=== PATIENT | female | born 1970 | race Hispanic/Latino ===

== ENCOUNTER 2024-12-07 23:00 | Inpatient (IN) | payer SELFPAY ==
[~2024-12-07] VITALS: Ht 160 cm; Wt 80.6 kg
--- NOTE | 2024-12-07 23:15 | ERN ---
ED Note History of Present Illness Stated Complaint: ABD Chief Complaint: Abdominal Pain Time Seen by MD: 23:02 Dictation: This is a 53-year-old female who presented to the emergency room complaining of epigastric pain radiating to the backside. This started around 7:00 p.m. and patient thought she may be constipated and took a laxative around 7:30 p.m. without significant improvement. She also reports some nausea and had emesis in the hospital She reported vomitings after she arrived at the hospital. She denied fever chills or rigors does report flank pain radiating to the front. Temperature 97.7 pulse 125 respirations 20 blood pressure 173/88 with a pulse oximetry of 100 % Allergies: Coded Allergies: No Known Allergies (Unverified Allergy, Unknown, 12/07/24) Past Medical History Past Medical History: No Pertinent History Surgical History: Cholecystectomy, Family History: Negative History: Not Applicable RN Note Reviewed/Agreed w/PFSH: Yes Review of System Dictation Constitutional: Negative for fever,chills, and weight loss Eyes: Negative for injury, pain,redness, and discharge ENT: Negative for injury,pain or swelling Cardiovascular: Negative for chest pain, palpitations, and edema Respiratory: Negative for shortness of breath, cough, and wheezing, Abdomen/GI: Positive for epigastric abdominal pain, nausea, vomiting, diarrhea, and constipation Back: Negative for injury and pain : Negative for injury, bleeding and discharge MS/Extremity: Negative for injury and deformity Skin: Negative for rash, and discoloration Neuro: Negative for headache, weakness, numbness, tingling, and seizure Psych: Negative for suicide ideation, homicidal ideation, and hallucinations Initial Vital Sign VS Vital Signs Date Time Temp Pulse Resp B/P (MAP) Pulse Ox O2 Delivery O2 Flow Rate FiO2 12/07/24 23:02 97.7 125 20 173/88 100 Room Air 12/07/24 23:12 0 21 Physical Exam Dictation General: awake, alert, NAD obese female who looks uncomfortable from pain Head/Face: Normocephalic, atraumatic Eyes: PERRL, EOMI, vision at baseline ENT: oral cavity clear, TMs clear, no signs of infection Neck: Trachea midline, supple, no nuchal rigidity Cardiovascular: RRR, normal S1/S2, No MRGs, no JVD Respiratory: CTAB, no respiratory distress, No rales or wheezes Abdomen: Soft, mild tenderness in the epigastric area and diffusely, obese, normal bowel sounds, no guarding or rebound. Skin: Warm, dry, normal turgor, no rash MS/Extremity: Pulses equal, no cyanosis, neurovascular intact, FROM Neuro: COAx4, GCS 15, strength 5/5, CN 2-12 intact, normal cerebellar exam, normal gait, Psych: Normal behavior, mood, and affect normal Extremities-trace edema without any palpable cords, Homans sign is negative Results (Laboratory/Radiology) Laboratory/Radiology Laboratory Tests Test 12/07/24 23:13 12/07/24 23:57 White Blood Count 11.5 K/uL (4.8-10.8) H Red Blood Count 5.92 MIL/uL (4.00-5.50) H Hemoglobin 16.9 g/dL (12.0-16.0) H Hematocrit 48.5 % (36-48) H Mean Corpuscular Volume 81.9 fL (79-99) Mean Corpuscular Hemoglobin 28.5 pg (27.0-33.0) Mean Corpuscular Hemoglobin Concent 34.8 g/dL (32.0-36.0) Red Cell Distribution Width 12.5 % (11.0-15.5) Platelet Count 241 K/uL (130-400) Mean Platelet Volume 10.8 fL (7.5-10.5) H Immature Granulocyte % (Auto) 0.3 % (0-1) Neutrophils (%) (Auto) 72.1 % (40.0-77.0) Lymphocytes (%) (Auto) 21.5 % (21.0-51.0) Monocytes (%) (Auto) 4.8 % (3.0-13.0) Eosinophils (%) (Auto) 1.0 % (0.0-8.0) Basophils (%) (Auto) 0.3 % (0.0-5.0) Neutrophils # (Auto) 8.3 K/uL (1.8-7.7) H Lymphocytes # (Auto) 2.5 K/uL (1.0-4.8) Monocytes # (Auto) 0.6 K/uL (0.1-1.0) Eosinophils # (Auto) 0.12 K/uL (0.00-0.70) Basophils # (Auto) 0.04 K/uL (0.00-0.20) Absolute Immature Granulocyte (auto 0.03 K/uL (0-1) Nucleated Red Blood Cells 0.0 % (0.0-0.19) Sodium Level 135 mmol/L (136-145) L Potassium Level 4.3 mmol/L (3.5-5.1) Chloride Level 96 mmol/L (101-111) L Carbon Dioxide Level 29 mmol/L (21-32) Blood Urea Nitrogen 16 mg/dL (7-18) Creatinine 1.0 mg/dL (0.5-1.0) Glomerular Filtration Rate Calc 67 mL/min (>90) Random Glucose 365 mg/dL (70-105) H Total Calcium 10.1 mg/dL (8.5-10.1) Troponin I High Sensitivity 5 ng/L (4-50) Lipase 57 U/L (16-77) Urine Color LIGHT-YELLOW (YELLOW) Urine Appearance CLEAR (CLEAR) Urine pH 5.5 (5.0-8.0) Urine Specific [place] 1.042 (1.001-1.031) Urine Protein 50 mg/dL (NEGATIVE) H Urine Glucose (UA) >=1000 mg/dL (NEGATIVE) H Urine Ketones 5 mg/dL (NEGATIVE) H Urine Occult Blood +- (TRACE) (NEGATIVE) H Urine Nitrate NEGATIVE (NEGATIVE) Urine Bilirubin NEGATIVE mg/dL (NEGATIVE) Urine Urobilinogen 0.2 mg/dL (0.2-1.0) Urine Leukocyte Esterase NEGATIVE Manasa/uL Urine RBC 11-25 /HPF (0-1) H Urine WBC 11-25 /HPF (0-1) H Urine Squamous Epithelial Cells MOD /HPF (0-2) Urine Bacteria RARE /HPF (None Seen) Labs Reviewed?: Yes EKG Comment: 12 lead EKG done on 12/07/2024 at 11:00 p.m. shows a heart rate of 126, VA interval 141, QRS 84, QT/QTC 301/436 Impression sinus tachycardia with overall somewhat low voltage poor progression of the R-waves nonspecific changes. EKG rhythm strip sinus tachycardia with no acute ST-T elevations or deep ST depressions Interpreted by ER MD Dr. Jamil CT Scan Comment: REASON: severe epigastric pain, nausea ? Biliary colic ORDERING PHYSICIAN: MELANI JAMIL MD PROCEDURE: ABD PEL WO - CT ABDOMEN/PELVIS W/O CONTRAST EXAM: CT Abdomen and Pelvis without IV contrast. CLINICAL HISTORY: Severe pain in the epigastrium. TECHNIQUE: Thin collimated axial CT images of the abdomen and pelvis were obtained, with sagittal and coronal reformatted images also submitted. A CT scan is done according to ALARA (As Low As Reasonably Achievable). CONTRAST: None. COMPARISON: None. FINDINGS: Unremarkable visualized lung parenchyma. There is no focal abnormality appreciated within the liver, pancreas, spleen, or adrenals. Status post cholecystectomy. Fatty liver. Moderate thinning of the cortex in the upper pole of the left kidney. There is mild dilatation of the distal small bowel loops to a maximum diameter of 2.8 cm with dilatation terminating at the ileal cecal junction. Moderate fecal content in the cecum. The appendix is unremarkable. Small ventral supraumbilical hernia containing fat through a defect measuring 1.7 cm. 0.7 cm omental fat-containing umbilical hernia. Uncomplicated colonic diverticula. There is no abnormality within the urinary bladder. Unremarkable reproductive organs. No lymphadenopathy. Mild ascites. No pneumoperitoneum. There is about 5 mm phlebolith around the junction of the right renal vein and IVC. Mild calcific atherosclerotic disease in the abdominal aorta. There is no acute osseous abnormality. IMPRESSIONS: Mild small bowel obstruction with dilatation of the distal small bowel loops terminating at the ileal cecal junction. Moderate fecal content in the cecum. Mild ascites. Uncomplicated colonic diverticula. Fatty liver. Cortical scars in the left kidney. Uncomplicated umbilical and supraumbilical ventral wall hernias. Recommend a barium follow-through study for further evaluation. /[place] DICTATED BY: DINOARH TADEO Jr., MD DATE: 12/08/24335 ELECTRONICALLY SIGNED BY: DINORAH TADEO Jr., MD DATE: 12/08/24335 ED Course ED Course Orders Procedure Category Date Status Time Vital Signs Per CPOE 12/07/24 Transmitted Routine 23:02 Saline Lock Iv CPOE 12/07/24 Transmitted 23:02 Cbc With Differential LAB 12/07/24 Complete 23:02 Lipase LAB 12/07/24 Complete 23:02 Urinalysis Profile LAB 12/07/24 Complete 23:02 Troponin I High LAB 12/07/24 Complete Sensitivity 23:02 Basic Metabolic Panel LAB 12/07/24 Complete 23:02 12 Lead Ekg Tracing- EKG 12/07/24 Logged Technical 23:05 Chest 1vw RAD 12/07/24 Resulted 23:11 Morphine 4mg Syg PHA 12/07/24 Complete (Morphine 4mg Syg) 23:30 Pantoprazole 40mg Tab PHA 12/07/24 Complete (Protonix 40mg Tab 23:30 Lidocaine Hcl 2% PHA 12/07/24 Complete Viscous (Lidocaine Hcl 23:30 Mag/Alum/Simeth 30ml PHA 12/07/24 Complete (Maalox Plus 30ml) 23:30 Dicyclomine Hcl PHA 12/07/24 Complete (Bentyl 10mg/5ml 23:30 Ondansetron 4mg Inj PHA 12/08/24 Complete (Zofran 4mg Inj) 00:00 Ondansetron 4mg Inj PHA 12/07/24 Complete (Zofran 4mg Inj) 23:35 0.9%Nacl 1000ml (Ns PHA 12/08/24 Complete 1000ml) 00:30 Culture Urine PALOMO 12/08/24 In Process 00:31 Ceftriaxone 1g Vial PHA 12/08/24 Complete (Rocephine 1g Inj) 01:00 Morphine 4mg Syg PHA 12/08/24 Complete (Morphine 4mg Syg) 01:00 Ct Abdomen/Pelvis W/O CT 12/08/24 Resulted Contrast 01:00 Current Medications Medications (Trade) Dose Ordered Sig/Leah Route PRN Reason Start Time Stop Time Status Last Admin Dose Admin Al Hydroxide/Mg Hydroxide (MAALox PLUS 30ML) 30 ml ONCE ONCE PO 12/07/24 23:30 12/07/24 23:31 DC 12/07/24 23:19 Ceftriaxone Sodium (ROCEphine 1G INJ) 1 gm ONCE ONCE IVPB 12/08/24 01:00 12/08/24 01:01 DC 12/08/24 01:05 Dicyclomine HCl (Bentyl 10mg/5ml Syrup) 10 mg ONCE ONCE PO 12/07/24 23:30 12/07/24 23:31 DC 12/07/24 23:19 Lidocaine HCl (Lidocaine HCl 2% Viscous) 10 ml ONCE ONCE PO 12/07/24 23:30 12/07/24 23:31 DC 12/07/24 23:19 Morphine Sulfate (morPHINE 4MG SYG) 4 mg ONCE ONCE IM 12/07/24 23:30 12/07/24 23:31 DC 12/07/24 23:33 Morphine Sulfate (morPHINE 4MG SYG) 4 mg ONCE ONCE IVP 12/08/24 01:00 12/08/24 01:04 DC 12/08/24 01:05 Ondansetron HCl (zoFRAN 4MG INJ) 4 mg ONCE ONCE IVP 12/08/24 00:00 12/08/24 00:01 DC 12/07/24 23:37 Ondansetron HCl (zoFRAN 4MG INJ) 4 mg STK-MED ONCE .ROUTE 12/07/24 23:35 12/07/24 23:40 DC Pantoprazole Sodium (PROTonix 40MG TAB) 40 mg ONCE ONCE PO 12/07/24 23:30 12/07/24 23:31 DC 12/07/24 23:19 Sodium Chloride 1,000 ml @ 0 mls/hr ONCE ONCE IV 12/08/24 00:30 12/08/24 00:31 DC 12/08/24 00:34 Vital Signs Date Time Temp Pulse Resp B/P (MAP) Pulse Ox O2 Delivery O2 Flow Rate FiO2 12/08/24 02:13 98.8 95 18 143/88 94 Room Air* 0 12/08/24 00:10 115 20 161/102 94 Room Air* 0 12/07/24 23:12 99.1 124 20 186/100 96 Room Air* 0 12/07/24 23:02 97.7 125 20 173/88 100 Room Air We will perform diagnostic labs, and administer medications according to the patient's complaint. Once the results are available, will review and personally interpreted the labs to rule out any acute life-threatening emergency the trach require immediate intervention and treatment. I will then re-evaluate the patient after treatment and diagnostic exams have return to determine whether the patient requires any further testing, can safely be discharged home or need further admission to hospital for additional treatment and evaluation. Labs reviewed CBC showed a white count of 11.5 hemoglobin 16.9 platelets 241. Lipase is 57 troponins are negative BNP 7 showed a sodium of 135 chloride 96 glucose is 365. I also reviewed urinalysis which is significant for positive leuko esterase and increased number of WBCs consistent with a UTI 2:45 a.m. I updated the patient on all the test results and the indicate for CT scan of the abdomen I updated her on the CT abdomen findings of small-bowel obstruction and other findings constipation and I recommended admission to the hospital for monitoring and diabetic teaching. She is agreeable 3:00 a.m. patient accepted by [facility] provider for hospitalist group for admission and further management Medical Decision Making MDM Differential diagnosis: Gastritis, esophagitis, hiatal hernia, gastroesophageal reflux disease, peptic ulcer disease, new onset diabetes Rationale: Tests considered and ordered secondary to shared decision making include: Previous outside records reviewed: Old ER visits. Risk of complication and/or morbidity or mortality of patient management: None Medications-Per medication reconciliation Need for hospitalization: Patient does not meet criteria for hospitalization. Need for emergency major/minor surgery: No There are no social concerns with this patient. Prescription drug management Prescriptions will include symptomatic care Patient's prior external medical records from other ER visits were reviewed by me as indicated. Prior testing and results from previous visits were reviewed. Prior tests were taken into account with medical decision making and resource utilization, independent historian/historians were used to obtain complete medical history. I independently interpreted the test that were performed, results were reviewed by me and considered findings on radiology if ordered. Medical management and examination interpretation discussions were had by me with other qualified healthcare professionals as indicated for the patient's care. Problem List Problem List: (1) Small bowel obstruction (2) UTI (urinary tract infection) (3) Diabetes mellitus, new onset DX & DISP Disposition: Inpatient Decision to Admit Time: 02:46 Departure Impression: Primary Impression: Small bowel obstruction Additional Impressions: UTI (urinary tract infection), Diabetes mellitus, new onset Condition: Stable Additional Instructions: Patient was informed of all the diagnostic labs and procedures conducted in the emergency room today and demonstrated understanding of the results. I personally reviewed and interpreted all the diagnostic exams performed in the ER today. The patient will be admitted to the hospital for further treatment and evaluation. Disposition-admit to facility Condition-stable/guarded Course-uncertain at this time Pain status-decreased Assessment-exam unchanged Admission Certification- I certify that the patients status is appropriate and is based on my best clinical judgment and the patient's condition as documented in the medical records Referrals: MARNIE ROSS MD (PCP) MELANI JAMIL MD Dec 07, 2024 23:15
[2024-12-07] MEDS: DICYCLOMINE HCL 10 MG/5 ML ML PO ONE (23:19)
[2024-12-07] MEDS: MAG/ALUM/SIMETH 30 ML UDCUP PO ONE (23:19)
[2024-12-07] MEDS: LIDOCAINE HCL 2% VISCOUS 15 ML UDCUP PO ONE (23:19)
[2024-12-07 23:20] LABS: IMMATURE GRANULOCYTE ABSOLUTE 0.03 K/uL (0-1); NUCLEATED RED BLOOD CELLS 0.0 % (0.0-0.19); PLATELET COUNT (AUTO) 241 K/uL (130-400); RED BLOOD CELL COUNT(AUTO) 5.92 MIL/uL (4.00-5.50); RED CELL DISTRIBUTION WIDTH 12.5 % (11.0-15.5); WHITE BLOOD COUNT (AUTO) 11.5 K/uL (4.8-10.8)
[2024-12-07 23:41] LABS: CREATININE 1.0 mg/dL (0.5-1.0); GLOMERULAR FILTR. RATE CALC 67.0 mL/min (>90); GLUCOSE,RANDOM 365.0 mg/dL (70-105); SODIUM SERUM 135.0 mmol/L (136-145); UREA NITROGEN, BLOOD 16.0 mg/dL (7-18)
--- NOTE | 2024-12-07 23:51 | NUR ---
UA CUP PROVIDED AND PT DIRECTED TO RESTROOM
[2024-12-08 00:19] LABS: APPEARANCE,URINE CLEAR (CLEAR); GLUCOSE, URINE (UA) >=1000 mg/dL (NEGATIVE); LEUKOCYTE ESTERASE ,URINE NEGATIVE Leu/uL (NEGATIVE); NITRATE,URINE NEGATIVE (NEGATIVE); OCCULT BLOOD,URINE +- (TRACE) (NEGATIVE)
[2024-12-08 00:22] LABS: ADD UA MICROSCOPIC YES
[2024-12-08 00:25] LABS: SQUAMOUS EPITHELIAL CELL,UR MOD /HPF (0-2)
--- NOTE | 2024-12-08 00:28 | HMCIMG ---
EXAM: CR Chest, 1 view. CLINICAL HISTORY: Epigastric pain. COMPARISON: None. FINDINGS: The lungs show no infiltration or other acute findings. No pleural effusion or pneumothorax. The cardio mediastinal silhouette is within normal limits. No acute osseous abnormality. IMPRESSION: No acute cardiopulmonary pathology is evident. /[place]
[2024-12-08] MEDS: 0.9%NACL 1000ML 1,000 ML IV ONE ×2 (00:34→03:35)
--- NOTE | 2024-12-08 02:37 | HMCIMG ---
EXAM: CT Abdomen and Pelvis without IV contrast. CLINICAL HISTORY: Severe pain in the epigastrium. TECHNIQUE: Thin collimated axial CT images of the abdomen and pelvis were obtained, with sagittal and coronal reformatted images also submitted. A CT scan is done according to ALARA (As Low As Reasonably Achievable). CONTRAST: None. COMPARISON: None. FINDINGS: Unremarkable visualized lung parenchyma. There is no focal abnormality appreciated within the liver, pancreas, spleen, or adrenals. Status post cholecystectomy. Fatty liver. Moderate thinning of the cortex in the upper pole of the left kidney. There is mild dilatation of the distal small bowel loops to a maximum diameter of 2.8 cm with dilatation terminating at the ileal cecal junction. Moderate fecal content in the cecum. The appendix is unremarkable. Small ventral supraumbilical hernia containing fat through a defect measuring 1.7 cm. 0.7 cm omental fat-containing umbilical hernia. Uncomplicated colonic diverticula. There is no abnormality within the urinary bladder. Unremarkable reproductive organs. No lymphadenopathy. Mild ascites. No pneumoperitoneum. There is about 5 mm phlebolith around the junction of the right renal vein and IVC. Mild calcific atherosclerotic disease in the abdominal aorta. There is no acute osseous abnormality. IMPRESSIONS: Mild small bowel obstruction with dilatation of the distal small bowel loops terminating at the ileal cecal junction. Moderate fecal content in the cecum. Mild ascites. Uncomplicated colonic diverticula. Fatty liver. Cortical scars in the left kidney. Uncomplicated umbilical and supraumbilical ventral wall hernias. Recommend a barium follow-through study for further evaluation. /[place]
--- NOTE | 2024-12-08 03:36 | NUR ---
damon seismology technical officer at bedside at this time
--- NOTE | 2024-12-08 03:57 | HP ---
[facility] HISTORY AND PHYSICAL Date of Service: Dec 08, 2024 Time of Service: 03:56 Attending/supervising physicians: Dr. Alaniz and Dr. Kurtis Funk HISTORY OF PRESENT ILLNESS: Ms. Palmer is a 53-year-old female with no known history who presented to [facility] ED for evaluation of abdominal pain onset seven in a.m.. The patient stated the pain is in the epigastric pain radiating to the backside onset around 7:00 p.m. she also reported that she has pain to the flank that radiates to the front. The patient thought she may be constipated and took a laxative around 7:30 p.m. without significant improvement. She reported vomiting after she arrived at the hospital. She denied fever, chills, or rigors. V/S on arrival: 97.7 pulse 125 bpm, respirations 20 bpm, blood pressure 173/88 with a pulse oximetry of 100 %. Labs: WBCs 11.5. Blood glucose was 365 without known history of diabetes mellitus. UA was positive for protein, glucose, ketones, blood, but negative for leuk EST and nitrites. CT abdomen and pelvis with contrast: Mild small bowel obstruction with dilatation of the distal small bowel loops terminating at the ileal cecal junction. Moderate fecal content in the cecum. Mild ascites. Uncomplicated colonic diverticula. Fatty liver. Cortical scars in the left kidney. Uncomplicated umbilical and supraumbilical ventral wall hernias. Chest x-ray: No acute cardiopulmonary pathology is evident. In ED the patient was administered GI cocktail, morphine 2 mg IV, morphine 4 mg IV, Zofran 4 mg IV, NS 2 L bolus, Rocephin 1 g, insulin 5 units. ED provider requested patient be admitted to the hospital with the diagnosis of SBO, UTI, new onset DM. I went to assess the patient at bedside the patient's breathing was even, unlabored, in no distress. She denied any pain. I informed her of labs, diagnostics, and plan of care. I answered her multiple questions. She verbalized understanding and is in agreement with the plan. Plan and assessment are listed below. REVIEW OF SYSTEMS 12-point ROS reviewed with the patient. All pertinent positives mentioned above. Otherwise negative, noncontributory, non-pertinent. PAST MEDICAL HISTORY: As mentioned above PAST SURGICAL HISTORY: Cholecystectomy, PAST SOCIAL HISTORY: Alcohol: Rare. Denied tobacco and illicit drug use FAMILY HISTORY: Noncontributory Coded Allergies: No Known Allergies (Unverified Allergy, Unknown, 12/07/24) PHYSICAL EXAM GENERAL APPEARANCE: The patient is awake, alert, and oriented, in no acute cardiopulmonary distress. NEUROLOGICAL: Cranial nerves II-XII grossly intact. Motor is 5/5 in bilateral upper and lower extremities proximal to distal. No sensory deficits. HEENT: Face is symmetric. Pupils are equal and reactive. Extraocular movements are intact. NECK: Supple. No JVD. No thyromegaly. No submental, submandibular, pre- /postauricular, occipital or supraclavicular lymphadenopathy. CHEST: Normal chest expansion. No Telemetry. LUNGS: Absence of any rales, rhonchi or any wheezing. CARDIOVASCULAR: Regular. S1 and S2 normal. No appreciable rubs, murmurs or gallops. ABDOMEN: Soft, nontender, and nondistended. There is no rebound, voluntary guarding, or rigidity. : Deferred. No Rivera. EXTREMITIES: Non-edematous and not cyanotic. No clubbing. Good capillary refill. SKIN: No skin breakdown. Vital Sign (Last 24 Hours) 12/08/24 03:47 Temp 98.1 Pulse 89 Resp 20 B/P (MAP) 152/92 Pulse Ox 94 O2 Delivery Room Air* O2 Flow Rate 0 FiO2 21 LABS: Laboratory: Test 12/08/24 03:22 12/07/24 23:57 12/07/24 23:13 Range/Units Whole Blood Glucose 343 H 70-110 MG/DL Urine Color LIGHT-YELLOW YELLOW Urine Appearance CLEAR CLEAR Urine pH 5.5 5.0-8.0 Urine Specific [place] 1.042 H 1.001-1.031 Urine Protein 50 H NEGATIVE mg/dL Urine Glucose (UA) >=1000 H NEGATIVE mg/dL Urine Ketones 5 H NEGATIVE mg/dL Urine Occult Blood +- (TRACE) H NEGATIVE Urine Nitrate NEGATIVE NEGATIVE Urine Bilirubin NEGATIVE NEGATIVE mg/dL Urine Urobilinogen 0.2 0.2-1.0 mg/dL Urine Leukocyte Esterase NEGATIVE NEGATIVE Manasa/uL Urine RBC 11-25 H 0-1 /HPF Urine WBC 11-25 H 0-1 /HPF Urine Squamous Epithelial Cells MOD 0-2 /HPF Urine Bacteria RARE None Seen /HPF White Blood Count 11.5 H 4.8-10.8 K/uL Red Blood Count 5.92 H 4.00-5.50 MIL/uL Hemoglobin 16.9 H 12.0-16.0 g/dL Hematocrit 48.5 H 36-48 % Mean Corpuscular Volume 81.9 79-99 fL Mean Corpuscular Hemoglobin 28.5 27.0-33.0 pg Mean Corpuscular Hemoglobin Concent 34.8 32.0-36.0 g/dL Red Cell Distribution Width 12.5 11.0-15.5 % Platelet Count 241 130-400 K/uL Mean Platelet Volume 10.8 H 7.5-10.5 fL Immature Granulocyte % (Auto) 0.3 0-1 % Neutrophils (%) (Auto) 72.1 40.0-77.0 % Lymphocytes (%) (Auto) 21.5 21.0-51.0 % Monocytes (%) (Auto) 4.8 3.0-13.0 % Eosinophils (%) (Auto) 1.0 0.0-8.0 % Basophils (%) (Auto) 0.3 0.0-5.0 % Neutrophils # (Auto) 8.3 H 1.8-7.7 K/uL Lymphocytes # (Auto) 2.5 1.0-4.8 K/uL Monocytes # (Auto) 0.6 0.1-1.0 K/uL Eosinophils # (Auto) 0.12 0.00-0.70 K/uL Basophils # (Auto) 0.04 0.00-0.20 K/uL Absolute Immature Granulocyte (auto 0.03 0-1 K/uL Nucleated Red Blood Cells 0.0 0.0-0.19 % Sodium Level 135 L 136-145 mmol/L Potassium Level 4.3 3.5-5.1 mmol/L Chloride Level 96 L 101-111 mmol/L Carbon Dioxide Level 29 21-32 mmol/L Blood Urea Nitrogen 16 7-18 mg/dL Creatinine 1.0 0.5-1.0 mg/dL Glomerular Filtration Rate Calc 67 >90 mL/min Random Glucose 365 H 70-105 mg/dL Total Calcium 10.1 8.5-10.1 mg/dL Troponin I High Sensitivity 5 4-50 ng/L Lipase 57 16-77 U/L DIAGNOSTICS / RADIOLOGY: [ ] ASSESSMENT: Small bowel obstruction with dilatation of the distal small bowel loops terminating at the ileal cecal junction, per CT 12/08/2024. Mild ascites, per CT on 12/08/2024 Hyperglycemia without known history of diabetes mellitus Uncomplicated colonic diverticula, per CT on 12/08/2024 Fatty liver Cortical scars in the left kidney, per CT on 12/08/2024 Uncomplicated umbilical and supraumbilical ventral wall hernias, per CT on 12/08/2024 Leukocytosis, POA Erythrocytosis, POA Hyperhemoglobinemia, POA Polycythemia, POA Hyponatremia and hyperchloremia Acute kidney injury, GFR 67 (no other GFR to compare) Proteinemia, Glucosuria, ketonuria, per UA on 12/07/2024 PLAN: Admit to medical floor with telemetry monitoring Continue Rocephin IV 2 g Q 24H. LR at 100 mL/hour. Consulted Dr. Sauceda, general surgeon for evaluation of SBO. NPO. Dietitian consult for new onset DM. Consult Nephrology for cortical scars in the left kidney and NOEMY. P.r.n. medications for: Pain management, fever, nausea, vomiting, hypertension, hypertension Glucometer checks a.c. and HS with insulin regular sliding scale as needed per protocol. Blood pressure checks every 4 hours and as needed. Reconcile home medications once available. Monitor renal and liver function. Monitor electrolytes and treat accordingly. A.m. labs. + A1c GI and DVT prophylaxis. Further plan/orders per hospitalization course. 1. Which of the following were discussed? Hospice Care - No Therapeutic options - Yes Advance Directives - Yes Other discussions - 2. Discussed with who? The patient 3. Voluntary nature of this service was explained to the patient? Yes 4. Amount of time spent - __ over 35 minute 5. Reviewed by Physician? (if this service was performed by NPP) Yes ATTESTATION BY PHYSICIAN I have evaluated the patient chart, medical records, and spoke with appropriate staff. I reviewed the documentation, medical decision making, and treatment plan as noted by the KELBY above. I agree with the findings and plan of care. ALEX [employer] TRAINING MANAGER Dec 08, 2024 03:56
[2024-12-08] MEDS ORDERED: LACTULOSE 20 GM/30 ML UDCUP PO PRN (04:00)
[2024-12-08] MEDS: LACTATED RINGERS 1000ML 1,000 ML IV SCH (05:19)
--- NOTE | 2024-12-08 06:46 | EKG ---
[facility] Test Date: 2024-12-07 Test Time: 23:00:55 Pat Name: BUDDY FLOR Department: [facility] Room: 302 Gender: F [employer]: [id number] : 1970 Requested By: MELANI JAMIL Order Number: [id number] Reading MD: Jasmin Ontiveros Measurements Intervals [place] Rate: 126 P: 43 CT: 141 QRS: 51 QRSD: 84 T: -8 QT: 301 QTc: 436 Interpretive Statements Sinus tachycardia Low voltage, precordial leads No previous ECG available for comparison Electronically Signed On 12-09-2024 14:08:20 CDT by Jasmin Ontiveros Please click the below link to view image of tracing.
[2024-12-08 08:58] LABS: INR 1.01 (0.85-1.15)
[2024-12-08 09:06] LABS: ASPARTATE AMINOTRANSFERASE 25.0 U/L (10-37); TOTAL PROTEIN, SERUM 6.7 g/dL (6.0-8.3)
[2024-12-08] MEDS: FAMOTIDINE 20MG VIAL IV SCH (09:58)
--- NOTE | 2024-12-08 10:16 | NUR ---
NO HOME MEDICATIONS PER PT.
[2024-12-08 14:08] LABS: LDL DIRECT 113 mg/dL (0-99)
--- NOTE | 2024-12-08 14:45 | CONS ---
NEPHROLOGY CONSULTATION NOTE Date/Time Patient Seen: Dec 08, 2024 [id number] Reason for Consultation: Renal failure HISTORY OF PRESENT ILLNESS: This is a 54-year-old female with no known history She presented to emergency room with complaints of epigastric pain radiating to back, nausea, and vomiting Imaging studies were noted. She was admitted for further evaluation management of SBO, UTI, and new onset diabetes. She was noted with elevated BUN/creatinine We has been consulted for renal failure Renal function is stable Electrolytes are stable. UA was positive for proteinuria. She was seen in the emergency room, in no acute distress No family at the bedside Prognosis remains guarded REVIEW OF SYSTEMS: GENERAL: Positive for epigastric pain NEUROLOGIC: Negative for any blurry vision, blind spots, double vision, facial asymmetry, dysphagia, dysarthria, hemiparesis, hemisensory deficits, vertigo, ataxia. HEENT: Negative for any head trauma, neck trauma, neck stiffness, photophobia, phonophobia, sinusitis, rhinitis. CARDIAC: Negative for any chest pain, dyspnea on exertion, paroxysmal nocturnal dyspnea, peripheral edema. PULMONARY: Negative for any shortness of breath, wheezing, COPD, or TB exposure. GASTROINTESTINAL: Negative for any abdominal pain, nausea, vomiting, bright red blood per rectum, melena. GENITOURINARY: Negative for any dysuria, hematuria, incontinence. INTEGUMENTARY: Negative for any rashes, cuts, insect bites. RHEUMATOLOGIC: Negative for any joint pains, photosensitive rashes, history of vasculitis or kidney problems. HEMATOLOGIC: Negative for any abnormal bruising, frequent infections or bleeding. PAST MEDICAL HISTORY: No known medical history PAST SURGICAL HISTORY: Cholecystectomy, PAST SOCIAL HISTORY: Denies use of alcohol, tobacco or illicit drugs FAMILY HISTORY: Noncontributory PHYSICAL EXAM: GENERAL: Alert and oriented x 3. No acute distress. Well-nourished. EYES: EOMI. Anicteric. HENT: Moist mucous membranes. No scleral icterus. No cervical lymphadenopathy. LUNGS: Clear to auscultation bilaterally. No accessory muscle use. CARDIOVASCULAR: Regular rate and rhythm. No murmur. No JVD. ABDOMEN: Soft, non-tender and non-distended. No palpable masses. EXTREMITIES: No edema. Non-tender. SKIN: No rashes or lesions. Warm. NEUROLOGIC: No focal neurological deficits. CN II-XII grossly intact, but not individually tested. PSYCHIATRIC: Cooperative. Appropriate mood and affect. MEDICATIONS: [ ] Current Medications Medications (Trade) Dose Ordered Sig/Leah Route PRN Reason Start Time Stop Time Status Last Admin Dose Admin Acetaminophen (TYLenol 325MG TAB) 650 mg Q6H PRN PO FEVER/MILD PAIN LEVEL 1-3 12/08/24 04:00 01/07/25 03:59 Acetaminophen (TYLenol 650MG SUPPOSITORY) 650 mg Q6H PRN RC FEVER / MILD PAIN 1-3 IF NPO 12/08/24 04:00 01/07/25 03:59 Ceftriaxone Sodium (Rocephin 2gm Inj) 2 gm Q24H IVPB 12/09/24 01:00 12/19/24 00:59 Famotidine (Pepcid 20mg Vial) 20 mg BID IV 12/08/24 09:00 01/07/25 08:59 12/08/24 09:58 20 MG Insulin Human Regular (humuLIN R 100 UNIT/ML 3ML) INSULIN SLIDING SCAL... ACHS SQ 12/08/24 07:30 01/07/25 07:29 Labetalol HCl (TRANdate 20MG SYG) 10 mg Q2H PRN IV SBP GREATER THAN 160 12/08/24 04:00 01/07/25 03:59 Lactated Ringer's 1,000 ml @ 100 mls/hr Q10H IV 12/08/24 04:00 01/07/25 03:59 12/08/24 05:19 100 MLS/HR Lactulose (Constulose 20gm/ 30ml Udcup) 20 gm Q6H PRN PO CONSTIPATION 12/08/24 04:00 01/07/25 03:59 Morphine Sulfate (morPHINE 2MG SYG) 2 mg Q4H PRN IVP MODERATE PAIN (7-10) 12/08/24 04:00 12/15/24 03:59 Ondansetron HCl (zoFRAN 4MG INJ) 4 mg Q6H PRN IVP NAUSEA/VOMITING 12/08/24 04:00 01/07/25 03:59 Temazepam (restORIL 15 MG CAP) 15 mg HS PRN PO INSOMNIA/SLEEP 12/08/24 04:00 01/07/25 03:59 Vital Signs (last 8hr) Date Time Temp Pulse Resp B/P (MAP) Pulse Ox O2 Delivery O2 Flow Rate FiO2 12/08/24 07:37 98.1 77 17 129/77 98 Room Air* 0 21 DIAGNOSTICS / RADIOLOGY: [facility] [address] [place] [address] IMAGING REPORT Addendum PATIENT: BUDDY FLOR MR#: [id number] : 1970 SEX: F AGE: 54 LOCATION: [facility] ORDER 1 STATUS: REG ER REPORT#: [id number] SERVICE REASON: severe epigastric pain, nausea ? Biliary colic ORDERING PHYSICIAN: STEPHANI JAMIL MD PROCEDURE: ABD PEL WO - CT ABDOMEN/PELVIS W/O CONTRAST ADDENDUM REPORT ADDENDUM: Results were shared by telephone at 3:49 am on 12-08-24 and acknowledged by tSephani Severino. /[place] EXAM: CT Abdomen and Pelvis without IV contrast. CLINICAL HISTORY: Severe pain in the epigastrium. TECHNIQUE: Thin collimated axial CT images of the abdomen and pelvis were obtained, with sagittal and coronal reformatted images also submitted. A CT scan is done according to ALARA (As Low As Reasonably Achievable). CONTRAST: None. COMPARISON: None. FINDINGS: Unremarkable visualized lung parenchyma. There is no focal abnormality appreciated within the liver, pancreas, spleen, or adrenals. Status post cholecystectomy. Fatty liver. Moderate thinning of the cortex in the upper pole of the left kidney. There is mild dilatation of the distal small bowel loops to a maximum diameter of 2.8 cm with dilatation terminating at the ileal cecal junction. Moderate fecal content in the cecum. The appendix is unremarkable. Small ventral supraumbilical hernia containing fat through a defect measuring 1.7 cm. 0.7 cm omental fat-containing umbilical hernia. Uncomplicated colonic diverticula. There is no abnormality within the urinary bladder. Unremarkable reproductive organs. No lymphadenopathy. Mild ascites. No pneumoperitoneum. There is about 5 mm phlebolith around the junction of the right renal vein and IVC. Mild calcific atherosclerotic disease in the abdominal aorta. There is no acute osseous abnormality. IMPRESSIONS: Mild small bowel obstruction with dilatation of the distal small bowel loops terminating at the ileal cecal junction. Moderate fecal content in the cecum. Mild ascites. Uncomplicated colonic diverticula. Fatty liver. Cortical scars in the left kidney. Uncomplicated umbilical and supraumbilical ventral wall hernias. Recommend a barium follow-through study for further evaluation. /[place] DICTATED BY: DINORAH TADEO Jr., MD DATE: 12/08/24 0356 ELECTRONICALLY SIGNED BY: DATE: EXAM: CT Abdomen and Pelvis without IV contrast. CLINICAL HISTORY: Severe pain in the epigastrium. TECHNIQUE: Thin collimated axial CT images of the abdomen and pelvis were obtained, with sagittal and coronal reformatted images also submitted. A CT scan is done according to ALARA (As Low As Reasonably Achievable). CONTRAST: None. COMPARISON: None. FINDINGS: Unremarkable visualized lung parenchyma. There is no focal abnormality appreciated within the liver, pancreas, spleen, or adrenals. Status post cholecystectomy. Fatty liver. Moderate thinning of the cortex in the upper pole of the left kidney. There is mild dilatation of the distal small bowel loops to a maximum diameter of 2.8 cm with dilatation terminating at the ileal cecal junction. Moderate fecal content in the cecum. The appendix is unremarkable. Small ventral supraumbilical hernia containing fat through a defect measuring 1.7 cm. 0.7 cm omental fat-containing umbilical hernia. Uncomplicated colonic diverticula. There is no abnormality within the urinary bladder. Unremarkable reproductive organs. No lymphadenopathy. Mild ascites. No pneumoperitoneum. There is about 5 mm phlebolith around the junction of the right renal vein and IVC. Mild calcific atherosclerotic disease in the abdominal aorta. There is no acute osseous abnormality. IMPRESSIONS: Mild small bowel obstruction with dilatation of the distal small bowel loops terminating at the ileal cecal junction. Moderate fecal content in the cecum. Mild ascites. Uncomplicated colonic diverticula. Fatty liver. Cortical scars in the left kidney. Uncomplicated umbilical and supraumbilical ventral wall hernias. Recommend a barium follow-through study for further evaluation. /[place] DICTATED BY: DINORAH TADEO Jr., MD DATE: 12/08/24335 ELECTRONICALLY SIGNED BY: DINORAH TADEO Jr., MD DATE: 12/08/24335 PATIENT: BUDDY FLOR MR#: [id number] : 1970 SEX: F AGE: 54 LOCATION: [facility] ORDER 13 STATUS: REG ER REPORT#: [id number] SERVICE 10 REASON: Epigastric pain ORDERING PHYSICIAN: STEPHANI JAMIL MD PROCEDURE: CXR1VW - CHEST 1VW EXAM: CR Chest, 1 view. CLINICAL HISTORY: Epigastric pain. COMPARISON: None. FINDINGS: The lungs show no infiltration or other acute findings. No pleural effusion or pneumothorax. The cardio mediastinal silhouette is within normal limits. No acute osseous abnormality. IMPRESSION: No acute cardiopulmonary pathology is evident. /[place] DICTATED BY: DINORAH TADEO Jr., MD DATE: 12/08/24125 ELECTRONICALLY SIGNED BY: DINORAH TADEO Jr., MD DATE: 12/08/24125 LABORATORY: [ ] Hematology Labs: Test 12/07/24 23:13 Range/Units White Blood Count 11.5 H 4.8-10.8 K/uL Red Blood Count 5.92 H 4.00-5.50 MIL/uL Hemoglobin 16.9 H 12.0-16.0 g/dL Hematocrit 48.5 H 36-48 % Mean Corpuscular Volume 81.9 79-99 fL Mean Corpuscular Hemoglobin 28.5 27.0-33.0 pg Mean Corpuscular Hemoglobin Concent 34.8 32.0-36.0 g/dL Red Cell Distribution Width 12.5 11.0-15.5 % Platelet Count 241 130-400 K/uL Mean Platelet Volume 10.8 H 7.5-10.5 fL Immature Granulocyte % (Auto) 0.3 0-1 % Neutrophils (%) (Auto) 72.1 40.0-77.0 % Lymphocytes (%) (Auto) 21.5 21.0-51.0 % Monocytes (%) (Auto) 4.8 3.0-13.0 % Eosinophils (%) (Auto) 1.0 0.0-8.0 % Basophils (%) (Auto) 0.3 0.0-5.0 % Neutrophils # (Auto) 8.3 H 1.8-7.7 K/uL Lymphocytes # (Auto) 2.5 1.0-4.8 K/uL Monocytes # (Auto) 0.6 0.1-1.0 K/uL Eosinophils # (Auto) 0.12 0.00-0.70 K/uL Basophils # (Auto) 0.04 0.00-0.20 K/uL Absolute Immature Granulocyte (auto 0.03 0-1 K/uL Nucleated Red Blood Cells 0.0 0.0-0.19 % Chemistry Labs: Test 12/08/24 12:12 12/08/24 10:04 12/08/24 08:39 12/07/24 23:13 Range/Units Lactic Acid Level 1.9 0.8-2.5 mmol/L Triglycerides Level 187 30-200 mg/dL Cholesterol Level 197 <200 mg/dL LDL Cholesterol 113 H 0-99 mg/dL HDL Cholesterol 48 35-85 mg/dL Whole Blood Glucose 216 H 70-110 MG/DL Hemoglobin A1c 10.9 H 4.0-6.0 % Estimated Average Glucose (eAG) 266 H 70-126 mg/dL Total Bilirubin 0.5 0.2-1.0 mg/dL Direct Bilirubin 0.1 0.0-0.3 mg/dL Aspartate Amino Transf (AST/SGOT) 25 10-37 U/L Alanine Aminotransferase (ALT/SGPT) 60 12-78 U/L Alkaline Phosphatase 107 50-136 U/L C-Reactive Protein, Quantitative 16.20 H 0.5-3.0 mg/L Total Protein 6.7 6.0-8.3 g/dL Albumin 3.3 L 3.5-5.0 g/dL Procalcitonin < 0.05 L 0.05-0.5 ng/mL Sodium Level 135 L 136-145 mmol/L Potassium Level 4.3 3.5-5.1 mmol/L Chloride Level 96 L 101-111 mmol/L Carbon Dioxide Level 29 21-32 mmol/L Blood Urea Nitrogen 16 7-18 mg/dL Creatinine 1.0 0.5-1.0 mg/dL Glomerular Filtration Rate Calc 67 >90 mL/min Random Glucose 365 H 70-105 mg/dL Total Calcium 10.1 8.5-10.1 mg/dL Troponin I High Sensitivity 5 4-50 ng/L Lipase 57 16-77 U/L Coagulation Labs: Test 12/08/24 08:39 Range/Units Prothrombin Time 10.7 9.6-11.6 SEC Prothromb Time International Ratio 1.01 0.85-1.15 Activated Partial Thromboplast Time 22.6 L 26.3-35.5 SEC ASSESSMENT: Acute kidney injury Proteinuria Hyponatremia Small bowel obstruction with dilatation of the distal small bowel loops terminating at the ileal cecal junction, per CT 12/08/2024. Mild ascites, per CT on 12/08/2024 Hyperglycemia without known history of diabetes mellitus Uncomplicated colonic diverticula, per CT on 12/08/2024 Fatty liver Cortical scars in the left kidney, per CT on 12/08/2024 Uncomplicated umbilical and supraumbilical ventral wall hernias, per CT on 12/08/2024 Leukocytosis, POA Erythrocytosis, POA Hyperhemoglobinemia, POA Polycythemia, POA PLAN: Labs, diagnostic, radiologic exams reviewed and interpreted by myself and supervising physician. We have reviewed external records in detail Obtain urine electrolytes, urine creatinine, urine osmolality and complete renal ultrasound Require close monitoring of renal function and electrolytes Order CBC, CMP, uric acid, TSH and electrolytes in am Continue with antibiotics BiPAP as necessary, for respiratory distress Monitor blood pressure adjust medication doses as needed Avoid hypotensive episodes May use Dilaudid 0.5 mg IV every 6 hours as needed for severe pain Monitor blood sugars Strict intake, output, and daily weight should be monitored Please renally adjust medications Avoid nephrotoxic and nonsteroidal drugs Avoid contrast if possible Will continue to monitor renal function, anemia, electrolytes Treatment plan discussed with patient Questions were answered We have discussed with the other team physicians in detail about the care plan We will continue to monitor the patient closely Thank you for allowing us to participate in the care of this patient ATTESTATION BY PHYSICIAN I have seen and examined the patient. I reviewed the documentation, medical decision making, and treatment plan as noted by the mid-level provider above. I agree with the findings and plan of care. LEONIDAS RINCON MD, [facility] Dec 08, 2024 14:45
--- NOTE | 2024-12-08 14:57 | PN ---
[facility] PROGRESS NOTE Date of Service: Dec 08, 2024 Time of Service: 14:38 SUBJECTIVE: Ms. Flor is a 53-year-old female with no known history who presented to [facility] for evaluation of abdominal pain onset seven in a.m.. The patient stated the pain is in the epigastric pain radiating to the backside onset around 7:00 p.m. she also reported that she has pain to the flank that radiates to the front. The patient thought she may be constipated and took a laxative around 7:30 p.m. without significant improvement. She reported vomiting after she arrived at the hospital. She denied fever, chills, or rigors. V/S on arrival: 97.7 pulse 125 bpm, respirations 20 bpm, blood pressure 173/88 with a pulse oximetry of 100 %. Labs: WBCs 11.5. Blood glucose was 365 without known history of diabetes mellitus. UA was positive for protein, glucose, ketones, blood, but negative for leuk EST and nitrites. CT abdomen and pelvis with contrast: Mild small bowel obstruction with dilatation of the distal small bowel loops terminating at the ileal cecal junction. Moderate fecal content in the cecum. Mild ascites. Uncomplicated colonic diverticula. Fatty liver. Cortical scars in the left kidney. Uncomplicated umbilical and supraumbilical ventral wall hernias. Chest x-ray: No acute cardiopulmonary pathology is evident. In ED the patient was administered GI cocktail, morphine 2 mg IV, morphine 4 mg IV, Zofran 4 mg IV, NS 2 L bolus, Rocephin 1 g, insulin 5 units. ED provider requested patient be admitted to the hospital with the diagnosis of SBO, UTI, new onset DM. 12/08/2024: Patient was seen in ED 18at the bedside. Patient was alert, awake, and oriented. Patient did not seem to be in any apparent distress. We discussed the laboratory findings, imaging results, and our plan with the patient today. Patient was able to localize her pain to lower abdomen today. She endorsed pain on palpation. Patient stated that she felt like she was having colic when her symptoms started yesterday. Patient stated that she has been having this colicky abdominal pain since a long time that she states last a few minutes every time. Her only significant medical history corresponds to a cholecystectomy done in 1994 and 2 deliveries. Surgery evaluation requested, pending. Her vitals look stable today with a blood pressure of 129/77. REVIEW OF SYSTEMS 12-point ROS reviewed with the patient. All pertinent positives mentioned above. Otherwise negative, noncontributory, non-pertinent. PHYSICAL EXAM GENERAL APPEARANCE: The patient is awake, alert, and oriented, in no acute cardiopulmonary distress. NEUROLOGICAL: Cranial nerves II-XII grossly intact. Motor is 5/5 in bilateral upper and lower extremities proximal to distal. No sensory deficits. HEENT: Face is symmetric. Pupils are equal and reactive. Extraocular movements are intact. NECK: Supple. No JVD. No thyromegaly. No submental, submandibular, pre- /postauricular, occipital or supraclavicular lymphadenopathy. CHEST: Normal chest expansion. No Telemetry. LUNGS: Absence of any rales, rhonchi or any wheezing. CARDIOVASCULAR: Regular. S1 and S2 normal. No appreciable rubs, murmurs or gallops. ABDOMEN: Soft, nontender, and nondistended. There is no rebound, voluntary guarding, or rigidity. : Deferred. No Rivera. EXTREMITIES: Non-edematous and not cyanotic. No clubbing. Good capillary refill. SKIN: No skin breakdown. Vital Signs (last 8hr) Date Time Temp Pulse Resp B/P (MAP) Pulse Ox O2 Delivery O2 Flow Rate FiO2 12/08/24 07:37 98.1 77 17 129/77 98 Room Air* 0 21 LABS: Laboratory: Test 12/08/24 12:12 12/08/24 10:04 12/08/24 08:39 12/07/24 23:57 Range/Units Lactic Acid Level 1.9 0.8-2.5 mmol/L Triglycerides Level 187 30-200 mg/dL Cholesterol Level 197 <200 mg/dL LDL Cholesterol 113 H 0-99 mg/dL HDL Cholesterol 48 35-85 mg/dL Whole Blood Glucose 216 H 70-110 MG/DL Prothrombin Time 10.7 9.6-11.6 SEC Prothromb Time International Ratio 1.01 0.85-1.15 Activated Partial Thromboplast Time 22.6 L 26.3-35.5 SEC Hemoglobin A1c 10.9 H 4.0-6.0 % Estimated Average Glucose (eAG) 266 H 70-126 mg/dL Total Bilirubin 0.5 0.2-1.0 mg/dL Direct Bilirubin 0.1 0.0-0.3 mg/dL Aspartate Amino Transf (AST/SGOT) 25 10-37 U/L Alanine Aminotransferase (ALT/SGPT) 60 12-78 U/L Alkaline Phosphatase 107 50-136 U/L C-Reactive Protein, Quantitative 16.20 H 0.5-3.0 mg/L Total Protein 6.7 6.0-8.3 g/dL Albumin 3.3 L 3.5-5.0 g/dL Procalcitonin < 0.05 L 0.05-0.5 ng/mL Urine Color LIGHT-YELLOW YELLOW Urine Appearance CLEAR CLEAR Urine pH 5.5 5.0-8.0 Urine Specific [place] 1.042 H 1.001-1.031 Urine Protein 50 H NEGATIVE mg/dL Urine Glucose (UA) >=1000 H NEGATIVE mg/dL Urine Ketones 5 H NEGATIVE mg/dL Urine Occult Blood +- (TRACE) H NEGATIVE Urine Nitrate NEGATIVE NEGATIVE Urine Bilirubin NEGATIVE NEGATIVE mg/dL Urine Urobilinogen 0.2 0.2-1.0 mg/dL Urine Leukocyte Esterase NEGATIVE NEGATIVE [place]/uL Urine RBC 11-25 H 0-1 /HPF Urine WBC 11-25 H 0-1 /HPF Urine Squamous Epithelial Cells MOD 0-2 /HPF Urine Bacteria RARE None Seen /HPF Test 12/07/24 23:13 Range/Units White Blood Count 11.5 H 4.8-10.8 K/uL Red Blood Count 5.92 H 4.00-5.50 MIL/uL Hemoglobin 16.9 H 12.0-16.0 g/dL Hematocrit 48.5 H 36-48 % Mean Corpuscular Volume 81.9 79-99 fL Mean Corpuscular Hemoglobin 28.5 27.0-33.0 pg Mean Corpuscular Hemoglobin Concent 34.8 32.0-36.0 g/dL Red Cell Distribution Width 12.5 11.0-15.5 % Platelet Count 241 130-400 K/uL Mean Platelet Volume 10.8 H 7.5-10.5 fL Immature Granulocyte % (Auto) 0.3 0-1 % Neutrophils (%) (Auto) 72.1 40.0-77.0 % Lymphocytes (%) (Auto) 21.5 21.0-51.0 % Monocytes (%) (Auto) 4.8 3.0-13.0 % Eosinophils (%) (Auto) 1.0 0.0-8.0 % Basophils (%) (Auto) 0.3 0.0-5.0 % Neutrophils # (Auto) 8.3 H 1.8-7.7 K/uL Lymphocytes # (Auto) 2.5 1.0-4.8 K/uL Monocytes # (Auto) 0.6 0.1-1.0 K/uL Eosinophils # (Auto) 0.12 0.00-0.70 K/uL Basophils # (Auto) 0.04 0.00-0.20 K/uL Absolute Immature Granulocyte (auto 0.03 0-1 K/uL Nucleated Red Blood Cells 0.0 0.0-0.19 % Sodium Level 135 L 136-145 mmol/L Potassium Level 4.3 3.5-5.1 mmol/L Chloride Level 96 L 101-111 mmol/L Carbon Dioxide Level 29 21-32 mmol/L Blood Urea Nitrogen 16 7-18 mg/dL Creatinine 1.0 0.5-1.0 mg/dL Glomerular Filtration Rate Calc 67 >90 mL/min Random Glucose 365 H 70-105 mg/dL Total Calcium 10.1 8.5-10.1 mg/dL Troponin I High Sensitivity 5 4-50 ng/L Lipase 57 16-77 U/L Current Medications Medications (Trade) Dose Ordered Sig/Leah Route PRN Reason Start Time Stop Time Status Last Admin Dose Admin Acetaminophen (TYLenol 325MG TAB) 650 mg Q6H PRN PO FEVER/MILD PAIN LEVEL 1-3 12/08/24 04:00 01/07/25 03:59 Acetaminophen (TYLenol 650MG SUPPOSITORY) 650 mg Q6H PRN RC FEVER / MILD PAIN 1-3 IF NPO 12/08/24 04:00 01/07/25 03:59 Ceftriaxone Sodium (Rocephin 2gm Inj) 2 gm Q24H IVPB 12/09/24 01:00 12/19/24 00:59 Famotidine (Pepcid 20mg Vial) 20 mg BID IV 12/08/24 09:00 01/07/25 08:59 12/08/24 09:58 20 MG Insulin Human Regular (humuLIN R 100 UNIT/ML 3ML) INSULIN SLIDING SCAL... ACHS SQ 12/08/24 07:30 01/07/25 07:29 Labetalol HCl (TRANdate 20MG SYG) 10 mg Q2H PRN IV SBP GREATER THAN 160 12/08/24 04:00 01/07/25 03:59 Lactated Ringer's 1,000 ml @ 100 mls/hr Q10H IV 12/08/24 04:00 01/07/25 03:59 12/08/24 05:19 100 MLS/HR Lactulose (Constulose 20gm/ 30ml Udcup) 20 gm Q6H PRN PO CONSTIPATION 12/08/24 04:00 01/07/25 03:59 Morphine Sulfate (morPHINE 2MG SYG) 2 mg Q4H PRN IVP MODERATE PAIN (7-10) 12/08/24 04:00 12/15/24 03:59 Ondansetron HCl (zoFRAN 4MG INJ) 4 mg Q6H PRN IVP NAUSEA/VOMITING 12/08/24 04:00 01/07/25 03:59 Temazepam (restORIL 15 MG CAP) 15 mg HS PRN PO INSOMNIA/SLEEP 12/08/24 04:00 01/07/25 03:59 DIAGNOSTICS / RADIOLOGY: [place] [address] IMAGING REPORT Signed PATIENT: BUDDY FLOR MR#: [id number] : 1970 SEX: F AGE: 54 LOCATION: [facility] ORDER 13 STATUS: REG REPORT#: [id number] SERVICE 231 REASON: Epigastric pain ORDERING PHYSICIAN: STEPHANI JAMIL MD PROCEDURE: CXR1VW - CHEST 1VW EXAM: CR Chest, 1 view. CLINICAL HISTORY: Epigastric pain. COMPARISON: None. FINDINGS: The lungs show no infiltration or other acute findings. No pleural effusion or pneumothorax. The cardio mediastinal silhouette is within normal limits. No acute osseous abnormality. IMPRESSION: No acute cardiopulmonary pathology is evident. /[place] DICTATED BY: DINORAH TADEO Jr., MD DATE: 12/08/24125 ELECTRONICALLY SIGNED BY: DINORAH TADEO Jr., MD DATE: 12/08/24125 [place] [id number] [place] [id number] IMAGING REPORT Addendum PATIENT: BUDDY FLOR MR#: [id number] : 1970 SEX: F AGE: 54 LOCATION: [facility] ORDER 1 STATUS: REG ER REPORT#: [id number] SERVICE REASON: severe epigastric pain, nausea ? Biliary colic ORDERING PHYSICIAN: STEPHANI JAMIL MD PROCEDURE: ABD PEL WO - CT ABDOMEN/PELVIS W/O CONTRAST ADDENDUM REPORT ADDENDUM: Results were shared by telephone at 3:49 am on 12-08-24 and acknowledged by Stephani Severino. /[place] EXAM: CT Abdomen and Pelvis without IV contrast. CLINICAL HISTORY: Severe pain in the epigastrium. TECHNIQUE: Thin collimated axial CT images of the abdomen and pelvis were obtained, with sagittal and coronal reformatted images also submitted. A CT scan is done according to ALARA (As Low As Reasonably Achievable). CONTRAST: None. COMPARISON: None. FINDINGS: Unremarkable visualized lung parenchyma. There is no focal abnormality appreciated within the liver, pancreas, spleen, or adrenals. Status post cholecystectomy. Fatty liver. Moderate thinning of the cortex in the upper pole of the left kidney. There is mild dilatation of the distal small bowel loops to a maximum diameter of 2.8 cm with dilatation terminating at the ileal cecal junction. Moderate fecal content in the cecum. The appendix is unremarkable. Small ventral supraumbilical hernia containing fat through a defect measuring 1.7 cm. 0.7 cm omental fat-containing umbilical hernia. Uncomplicated colonic diverticula. There is no abnormality within the urinary bladder. Unremarkable reproductive organs. No lymphadenopathy. Mild ascites. No pneumoperitoneum. There is about 5 mm phlebolith around the junction of the right renal vein and IVC. Mild calcific atherosclerotic disease in the abdominal aorta. There is no acute osseous abnormality. IMPRESSIONS: Mild small bowel obstruction with dilatation of the distal small bowel loops terminating at the ileal cecal junction. Moderate fecal content in the cecum. Mild ascites. Uncomplicated colonic diverticula. Fatty liver. Cortical scars in the left kidney. Uncomplicated umbilical and supraumbilical ventral wall hernias. Recommend a barium follow-through study for further evaluation. /[place] DICTATED BY: DINORAH TADEO Jr., MD DATE: 12/08/24 0356 ELECTRONICALLY SIGNED BY: DATE: EXAM: CT Abdomen and Pelvis without IV contrast. CLINICAL HISTORY: Severe pain in the epigastrium. TECHNIQUE: Thin collimated axial CT images of the abdomen and pelvis were obtained, with sagittal and coronal reformatted images also submitted. A CT scan is done according to ALARA (As Low As Reasonably Achievable). CONTRAST: None. COMPARISON: None. FINDINGS: Unremarkable visualized lung parenchyma. There is no focal abnormality appreciated within the liver, pancreas, spleen, or adrenals. Status post cholecystectomy. Fatty liver. Moderate thinning of the cortex in the upper pole of the left kidney. There is mild dilatation of the distal small bowel loops to a maximum diameter of 2.8 cm with dilatation terminating at the ileal cecal junction. Moderate fecal content in the cecum. The appendix is unremarkable. Small ventral supraumbilical hernia containing fat through a defect measuring 1.7 cm. 0.7 cm omental fat-containing umbilical hernia. Uncomplicated colonic diverticula. There is no abnormality within the urinary bladder. Unremarkable reproductive organs. No lymphadenopathy. Mild ascites. No pneumoperitoneum. There is about 5 mm phlebolith around the junction of the right renal vein and IVC. Mild calcific atherosclerotic disease in the abdominal aorta. There is no acute osseous abnormality. IMPRESSIONS: Mild small bowel obstruction with dilatation of the distal small bowel loops terminating at the ileal cecal junction. Moderate fecal content in the cecum. Mild ascites. Uncomplicated colonic diverticula. Fatty liver. Cortical scars in the left kidney. Uncomplicated umbilical and supraumbilical ventral wall hernias. Recommend a barium follow-through study for further evaluation. /[place] DICTATED BY: DINORAH TADEO Jr., MD DATE: 12/08/24335 ELECTRONICALLY SIGNED BY: DINORAH TADEO Jr., MD DATE: 12/08/24335 ASSESSMENT: Small bowel obstruction with dilatation of the distal small bowel loops terminating at the ileal cecal junction, per CT 12/08/2024. Mild ascites, per CT on 12/08/2024 Hyperglycemia without known history of diabetes mellitus Uncomplicated colonic diverticula, per CT on 12/08/2024 Fatty liver Cortical scars in the left kidney, per CT on 12/08/2024 Uncomplicated umbilical and supraumbilical ventral wall hernias, per CT on 12/08/2024 Leukocytosis, POA Erythrocytosis, POA Hyperhemoglobinemia, POA Polycythemia, POA Hyponatremia and hyperchloremia Acute kidney injury, GFR 67 (no other GFR to compare) Proteinemia, Glucosuria, ketonuria, per UA on 12/07/2024 PLAN: Small-bowel obstruction: -CT abdomen and pelvis revealed mild small bowel obstruction with dilatation of the distal small bowel loops terminating at the ileocecal junction. - general surgery was consulted, pending evaluation. -patient switch to full liquid diet from NPO today -patient will be given morphine 2 mg for severe pain, acetaminophen 650 mg for [id number] pain as needed. -serum lactic acid, hepatic function panel ordered, pending results -closely monitor the patient for disease progression in the hospital. Acute kidney injury vs chronic kidney disease vs dehydration: -On admission, patient had a GFR of 67. -urine protein creatinine ratio showed proteinuria at 1 g. -nephrology was consulted, pending evaluation. -continue monitoring kidney function with serial labs. Uncontrolled hyperglycemia: -on admission patient was found to be hyperglycemic with a random glucose of 365 and a HbA1c of 10.9%. -patient was placed on an insulin sliding scale and hypokalemia protocol. -patient will be given 10 units of Lantus tonight -endocrinology consulted, pending evaluation. -continue monitoring blood glucose. GI prophylaxis with Pepcid 20 mg. DVT prophylaxis with SCDs. ATTESTATION BY PHYSICIAN I have seen and examined the patient. I reviewed the documentation, medical decision making, and treatment plan as noted by the resident provider above. I agree with the findings and plan of care. Jefferson Funk MD, HEMA MD Dec 08, 2024 14:57
--- NOTE | 2024-12-08 15:33 | NUR ---
DCP:HOME Pt currently lives alone in her home. Pt does not have any DME, home health, or provider services. Pt states that she is able to complete ADLs independently. PCP is Dr. Fitz Clarke and uses [facility] for any RX needs. At [place] pt will want to go home and family can assist with transportation. Addendum: 12/08/24 at 1535 by NO FOFANA SS Amended: Links added.
[2024-12-08 15:50] LABS: CREATININE,URINE RANDOM 93.84 mg/dL (30-135); PROTEIN,URINE RANDOM 90.1 mg/dL (0-11.9)
--- NOTE | 2024-12-08 17:44 | CONS ---
CONSULT NOTE: Consulting physician: Dr. Fletcher Consulting service: General surgery Reason for consultation: Small bowel obstruction History of present illness: This is a 54-year-old female with no significant medical history that has been consulted to surgery after presenting to the hospital with the epigastric pain that began yesterday in the evening. Due to concerns patient presented to the hospital. Initial imaging concerning for small bowel obstruction. Patient however passing gas this had bowel movement. Abdominal pain no longer present. Patient currently NPO Medical history: No significant medical history Cholecystectomy and and C-sections Surgical history: Review of systems: General: No Fever, No Chills, No Night Sweats, No Fatigue, No Malaise, No Appetite, No Other HEENT: No Head Aches, No Visual Changes, No Eye Pain, No Ear Pain, No Dyspha praveen, No Sinus Congestion, No Post Nasal Drip, No Sore Throat, No Other Pulmonary: No Dyspnea, No Cough, No Pleuritic Chest Pain, No Other Cardiovascular: No: Chest Pain, Palpitations, Orthopnea, Paroxysmal No Dyspnea, Edema, Lt Headedness, Other Gastrointestinal: No: Nausea, Vomiting, Diarrhea, Constipation, Melena, Hematochezia, Other Genitourinary: No Dysuria, No Frequency, No Incontinence, No Hematuria, No Retention, No Other Musculoskeletal: No: other, neck pain, shoulder pain, arm pain, back pain, hand pain, leg pain, foot pain Skin: No Urticaria, No Rash, No Other Neurological: No: Weakness, Numbness, Incoordination, Change in speech, Confusion, Seizures, Other Physical exam: General: Awake alert and oriented Heart: Regular rate and rhythm} Lungs: Clear to auscultation no distress Abdomen: [Soft, nontender, nondistended Assessment: This is a 54-year-old female with a resolving small-bowel obstruction Plan: This point in time we will advance patient to clear liquids and keep her there If patient tolerates in the morning we can advance If patient does not tolerate order KUB stat Continue with conservative management Surgical team to follow patient closely and Dr. Sauceda to be updated on patient's status ABBIE LOPEZ Jr. Dec 08, 2024 17:44
[2024-12-08 20:00] VITALS: BP 129/67; PULSE 90; RESP 20; TEMP 98.8; O2SAT 98
[2024-12-09] VITALS (7 sets, daily range): BP systolic 135–163; BP diastolic 66–99; PULSE 72–85; RESP 16–20; TEMP 97.4–98; O2SAT 95–96
[2024-12-09 05:15] LABS: IMMATURE GRANULOCYTE ABSOLUTE 0.02 K/uL (0-1); NUCLEATED RED BLOOD CELLS 0.0 % (0.0-0.19); PLATELET COUNT (AUTO) 193 K/uL (130-400); RED BLOOD CELL COUNT(AUTO) 5.02 MIL/uL (4.00-5.50); RED CELL DISTRIBUTION WIDTH 12.8 % (11.0-15.5); WHITE BLOOD COUNT (AUTO) 5.5 K/uL (4.8-10.8)
[2024-12-09 05:42] LABS: ASPARTATE AMINOTRANSFERASE 30.0 U/L (10-37); CREATININE 0.7 mg/dL (0.5-1.0); GLOMERULAR FILTR. RATE CALC 102.0 mL/min (>90); GLUCOSE,RANDOM 135.0 mg/dL (70-105); PHOSPHORUS 3.8 mg/dL (2.5-4.9); SODIUM SERUM 140.0 mmol/L (136-145); TOTAL PROTEIN, SERUM 6.7 g/dL (6.0-8.3); UREA NITROGEN, BLOOD 9.0 mg/dL (7-18)
--- NOTE | 2024-12-09 11:35 | PN ---
NEPHROLOGY PROGRESS NOTE Date/Time Patient Seen: Dec 09, 2024 SUBJECTIVE: This is a 54-year-old female with no known history She presented to emergency room with complaints of epigastric pain radiating to back, nausea, and vomiting Imaging studies were noted. She was admitted for further evaluation management of SBO, UTI, and new onset diabetes. She continues to be followed by surgery She was noted with elevated BUN/creatinine We has been consulted for renal failure Renal function and electrolytes are stable. UA was positive for proteinuria. She was seen in the medical floor, in no acute distress No family at the bedside Prognosis remains guarded REVIEW OF SYSTEMS: GENERAL: Positive for epigastric pain NEUROLOGIC: Negative for any blurry vision, blind spots, double vision, facial asymmetry, dysphagia, dysarthria, hemiparesis, hemisensory deficits, vertigo, ataxia. HEENT: Negative for any head trauma, neck trauma, neck stiffness, photophobia, phonophobia, sinusitis, rhinitis. CARDIAC: Negative for any chest pain, dyspnea on exertion, paroxysmal nocturnal dyspnea, peripheral edema. PULMONARY: Negative for any shortness of breath, wheezing, COPD, or TB exposure. GASTROINTESTINAL: Negative for any abdominal pain, nausea, vomiting, bright red blood per rectum, melena. GENITOURINARY: Negative for any dysuria, hematuria, incontinence. INTEGUMENTARY: Negative for any rashes, cuts, insect bites. RHEUMATOLOGIC: Negative for any joint pains, photosensitive rashes, history of vasculitis or kidney problems. HEMATOLOGIC: Negative for any abnormal bruising, frequent infections or bleeding. Vital Signs (last 8hr) Date Time Temp Pulse Resp B/P (MAP) Pulse Ox O2 Delivery O2 Flow Rate FiO2 12/09/24 08:35 97.5 77 20 142/66 96 Room Air PHYSICAL EXAM: GENERAL: Alert and oriented x 3. No acute distress. Well-nourished. EYES: EOMI. Anicteric. HENT: Moist mucous membranes. No scleral icterus. No cervical lymphadenopathy. LUNGS: Clear to auscultation bilaterally. No accessory muscle use. CARDIOVASCULAR: Regular rate and rhythm. No murmur. No JVD. ABDOMEN: Soft, non-tender and non-distended. No palpable masses. EXTREMITIES: No edema. Non-tender. SKIN: No rashes or lesions. Warm. NEUROLOGIC: No focal neurological deficits. CN II-XII grossly intact, but not individually tested. PSYCHIATRIC: Cooperative. Appropriate mood and affect. Current Medications Medications (Trade) Dose Ordered Sig/Leah Route Start Time Stop Time Status Last Admin Dose Admin Ceftriaxone Sodium (Rocephin 2gm Inj) 2 gm Q24H IVPB 12/09/24 01:00 12/19/24 00:59 12/09/24 00:52 2 GM Famotidine (Pepcid 20mg Vial) 20 mg BID IV 12/08/24 09:00 01/07/25 08:59 12/09/24 09:55 20 MG Insulin Glargine (LANtus 100 UNITS/ML 10 ML VIAL) 10 units HS SQ 12/08/24 21:00 01/07/25 20:59 12/08/24 21:16 10 UNITS Insulin Human Regular (humuLIN R 100 UNIT/ML 3ML) INSULIN SLIDING SCAL... ACHS SQ 12/08/24 07:30 01/07/25 07:29 12/08/24 21:15 6 UNIT Lactated Ringer's 1,000 ml @ 100 mls/hr Q10H IV 12/08/24 04:00 01/07/25 03:59 12/09/24 09:56 100 MLS/HR LABORATORY: [ ] Hematology Labs: Test 12/09/24 04:13 Range/Units White Blood Count 5.5 4.8-10.8 K/uL Red Blood Count 5.02 4.00-5.50 MIL/uL Hemoglobin 14.5 12.0-16.0 g/dL Hematocrit 42.3 36-48 % Mean Corpuscular Volume 84.3 79-99 fL Mean Corpuscular Hemoglobin 28.9 27.0-33.0 pg Mean Corpuscular Hemoglobin Concent 34.3 32.0-36.0 g/dL Red Cell Distribution Width 12.8 11.0-15.5 % Platelet Count 193 130-400 K/uL Mean Platelet Volume 10.8 H 7.5-10.5 fL Immature Granulocyte % (Auto) 0.4 0-1 % Neutrophils (%) (Auto) 40.5 40.0-77.0 % Lymphocytes (%) (Auto) 46.9 21.0-51.0 % Monocytes (%) (Auto) 7.3 3.0-13.0 % Eosinophils (%) (Auto) 4.4 0.0-8.0 % Basophils (%) (Auto) 0.5 0.0-5.0 % Neutrophils # (Auto) 2.2 1.8-7.7 K/uL Lymphocytes # (Auto) 2.6 1.0-4.8 K/uL Monocytes # (Auto) 0.4 0.1-1.0 K/uL Eosinophils # (Auto) 0.24 0.00-0.70 K/uL Basophils # (Auto) 0.03 0.00-0.20 K/uL Absolute Immature Granulocyte (auto 0.02 0-1 K/uL Nucleated Red Blood Cells 0.0 0.0-0.19 % Chemistry Labs: Test 12/09/24 06:13 12/09/24 05:08 12/09/24 04:13 12/08/24 12:12 Range/Units Vitamin B12 Level 421 193-986 pg/mL Whole Blood Glucose 159 H 70-110 MG/DL Sodium Level 140 136-145 mmol/L Potassium Level 3.7 3.5-5.1 mmol/L Chloride Level 101 101-111 mmol/L Carbon Dioxide Level 33 H 21-32 mmol/L Blood Urea Nitrogen 9 7-18 mg/dL Creatinine 0.7 0.5-1.0 mg/dL Glomerular Filtration Rate Calc 102 >90 mL/min Random Glucose 135 H 70-105 mg/dL Uric Acid 2.9 2.6-7.2 mg/dL Total Calcium 8.9 8.5-10.1 mg/dL Phosphorus Level 3.8 2.5-4.9 mg/dL Magnesium Level 2.00 1.80-2.40 mg/dL Total Bilirubin 0.4 0.2-1.0 mg/dL Aspartate Amino Transf (AST/SGOT) 30 10-37 U/L Alanine Aminotransferase (ALT/SGPT) 59 12-78 U/L Alkaline Phosphatase 107 50-136 U/L Total Protein 6.7 6.0-8.3 g/dL Albumin 3.2 L 3.5-5.0 g/dL Thyroid Stimulating Hormone (TSH) 3.29 0.36-3.74 uIU/mL Lactic Acid Level 1.9 0.8-2.5 mmol/L Triglycerides Level 187 30-200 mg/dL Cholesterol Level 197 <200 mg/dL LDL Cholesterol 113 H 0-99 mg/dL HDL Cholesterol 48 35-85 mg/dL Test 12/08/24 08:39 12/07/24 23:13 Range/Units Hemoglobin A1c 10.9 H 4.0-6.0 % Estimated Average Glucose (eAG) 266 H 70-126 mg/dL Direct Bilirubin 0.1 0.0-0.3 mg/dL C-Reactive Protein, Quantitative 16.20 H 0.5-3.0 mg/L Procalcitonin < 0.05 L 0.05-0.5 ng/mL Troponin I High Sensitivity 5 4-50 ng/L Lipase 57 16-77 U/L Coagulation Labs: Test 12/08/24 08:39 Range/Units Prothrombin Time 10.7 9.6-11.6 SEC Prothromb Time International Ratio 1.01 0.85-1.15 Activated Partial Thromboplast Time 22.6 L 26.3-35.5 SEC DIAGNOSTICS / RADIOLOGY: [place] [address] IMAGING REPORT Addendum PATIENT: BUDDY FLOR MR#: [id number] : 1970 SEX: F AGE: 54 LOCATION: [facility] ORDER 1 STATUS: [facility] REPORT#: [id number] SERVICE REASON: severe epigastric pain, nausea ? Biliary colic ORDERING PHYSICIAN: STEPHANI JAMIL MD PROCEDURE: ABD PEL WO - CT ABDOMEN/PELVIS W/O CONTRAST ADDENDUM REPORT ADDENDUM: Results were shared by telephone at 3:49 am on 12-08-24 and acknowledged by Stephani Severino. /[place] EXAM: CT Abdomen and Pelvis without IV contrast. CLINICAL HISTORY: Severe pain in the epigastrium. TECHNIQUE: Thin collimated axial CT images of the abdomen and pelvis were obtained, with sagittal and coronal reformatted images also submitted. A CT scan is done according to ALARA (As Low As Reasonably Achievable). CONTRAST: None. COMPARISON: None. FINDINGS: Unremarkable visualized lung parenchyma. There is no focal abnormality appreciated within the liver, pancreas, spleen, or adrenals. Status post cholecystectomy. Fatty liver. Moderate thinning of the cortex in the upper pole of the left kidney. There is mild dilatation of the distal small bowel loops to a maximum diameter of 2.8 cm with dilatation terminating at the ileal cecal junction. Moderate fecal content in the cecum. The appendix is unremarkable. Small ventral supraumbilical hernia containing fat through a defect measuring 1.7 cm. 0.7 cm omental fat-containing umbilical hernia. Uncomplicated colonic diverticula. There is no abnormality within the urinary bladder. Unremarkable reproductive organs. No lymphadenopathy. Mild ascites. No pneumoperitoneum. There is about 5 mm phlebolith around the junction of the right renal vein and IVC. Mild calcific atherosclerotic disease in the abdominal aorta. There is no acute osseous abnormality. IMPRESSIONS: Mild small bowel obstruction with dilatation of the distal small bowel loops terminating at the ileal cecal junction. Moderate fecal content in the cecum. Mild ascites. Uncomplicated colonic diverticula. Fatty liver. Cortical scars in the left kidney. Uncomplicated umbilical and supraumbilical ventral wall hernias. Recommend a barium follow-through study for further evaluation. /[place] DICTATED BY: DINORAH TADEO Jr., MD DATE: 12/08/24 0356 ELECTRONICALLY SIGNED BY: DATE: EXAM: CT Abdomen and Pelvis without IV contrast. CLINICAL HISTORY: Severe pain in the epigastrium. TECHNIQUE: Thin collimated axial CT images of the abdomen and pelvis were obtained, with sagittal and coronal reformatted images also submitted. A CT scan is done according to ALARA (As Low As Reasonably Achievable). CONTRAST: None. COMPARISON: None. FINDINGS: Unremarkable visualized lung parenchyma. There is no focal abnormality appreciated within the liver, pancreas, spleen, or adrenals. Status post cholecystectomy. Fatty liver. Moderate thinning of the cortex in the upper pole of the left kidney. There is mild dilatation of the distal small bowel loops to a maximum diameter of 2.8 cm with dilatation terminating at the ileal cecal junction. Moderate fecal content in the cecum. The appendix is unremarkable. Small ventral supraumbilical hernia containing fat through a defect measuring 1.7 cm. 0.7 cm omental fat-containing umbilical hernia. Uncomplicated colonic diverticula. There is no abnormality within the urinary bladder. Unremarkable reproductive organs. No lymphadenopathy. Mild ascites. No pneumoperitoneum. There is about 5 mm phlebolith around the junction of the right renal vein and IVC. Mild calcific atherosclerotic disease in the abdominal aorta. There is no acute osseous abnormality. IMPRESSIONS: Mild small bowel obstruction with dilatation of the distal small bowel loops terminating at the ileal cecal junction. Moderate fecal content in the cecum. Mild ascites. Uncomplicated colonic diverticula. Fatty liver. Cortical scars in the left kidney. Uncomplicated umbilical and supraumbilical ventral wall hernias. Recommend a barium follow-through study for further evaluation. /[place] DICTATED BY: DINORAH TADEO Jr., MD DATE: 12/08/24335 ELECTRONICALLY SIGNED BY: DINORAH TADEO Jr., MD DATE: 12/08/24335 PATIENT: BUDDY FLOR MR#: [id number] : 1970 SEX: F AGE: 54 LOCATION: [facility] ORDER 13 STATUS: [facility] REPORT#: [id number] SERVICE 10 REASON: Epigastric pain ORDERING PHYSICIAN: STEPHANI JAMIL MD PROCEDURE: CXR1VW - CHEST 1VW EXAM: CR Chest, 1 view. CLINICAL HISTORY: Epigastric pain. COMPARISON: None. FINDINGS: The lungs show no infiltration or other acute findings. No pleural effusion or pneumothorax. The cardio mediastinal silhouette is within normal limits. No acute osseous abnormality. IMPRESSION: No acute cardiopulmonary pathology is evident. /[place] DICTATED BY: DINORAH TADEO Jr., MD DATE: 12/08/24125 ELECTRONICALLY SIGNED BY: DINORAH TADEO Jr., MD DATE: 12/08/24125 ASSESSMENT: Acute kidney injury Proteinuria Hyponatremia Small bowel obstruction with dilatation of the distal small bowel loops terminating at the ileal cecal junction, per CT 12/08/2024. Mild ascites, per CT on 12/08/2024 Hyperglycemia without known history of diabetes mellitus Uncomplicated colonic diverticula, per CT on 12/08/2024 Fatty liver Cortical scars in the left kidney, per CT on 12/08/2024 Uncomplicated umbilical and supraumbilical ventral wall hernias, per CT on 12/08/2024 Leukocytosis, POA Erythrocytosis, POA Hyperhemoglobinemia, POA Polycythemia, POA PLAN: Labs, diagnostic, radiologic exams reviewed and interpreted by myself and supervising physician. We have reviewed external records in detail Require close monitoring of renal function and electrolytes Order CBC, CMP, and electrolytes in am Continue with antibiotics BiPAP as necessary, for respiratory distress Monitor blood pressure adjust medication doses as needed Avoid hypotensive episodes May use Dilaudid 0.5 mg IV every 6 hours as needed for severe pain Monitor blood sugars Strict intake, output, and daily weight should be monitored Please renally adjust medications Avoid nephrotoxic and nonsteroidal drugs Avoid contrast if possible Will continue to monitor renal function, anemia, electrolytes Treatment plan discussed with patient Questions were answered We have discussed with the other team physicians in detail about the care plan We will continue to monitor the patient closely ATTESTATION BY PHYSICIAN I have seen and examined the patient. I reviewed the documentation, medical decision making, and treatment plan as noted by the mid-level provider above. I agree with the findings and plan of care. LEONIDAS RINCON MD, [facility] Dec 09, 2024 11:35
--- NOTE | 2024-12-09 14:55 | PN ---
GENERAL SURGERY PROGRESS NOTE Date/Time Patient Seen: 12/09/2024 1:30 p.m. Problem List: Small-bowel obstruction Interval History: Patient is passing gas and having bowel movement today. She has been tolerating full liquid diet. She has no abdominal pain. Current Medications Medications (Trade) Dose Ordered Sig/Leah Route Start Time Stop Time Status Last Admin Dose Admin Ceftriaxone Sodium (Rocephin 2gm Inj) 2 gm Q24H IVPB 12/09/24 01:00 12/19/24 00:59 12/09/24 00:52 2 GM Famotidine (Pepcid 20mg Vial) 20 mg BID IV 12/08/24 09:00 01/07/25 08:59 12/09/24 09:55 20 MG Insulin Glargine (LANtus 100 UNITS/ML 10 ML VIAL) 10 units HS SQ 12/08/24 21:00 01/07/25 20:59 12/08/24 21:16 10 UNITS Insulin Human Regular (humuLIN R 100 UNIT/ML 3ML) INSULIN SLIDING SCAL... ACHS SQ 12/08/24 07:30 01/07/25 07:29 12/09/24 14:47 4 UNIT Lactated Ringer's 1,000 ml @ 100 mls/hr Q10H IV 12/08/24 04:00 01/07/25 03:59 12/09/24 09:56 100 MLS/HR Physical Examination: GENERAL: No acute distress. HEAD: Normal with no signs of head trauma. EYES: PERRLA, EOMI, conjunctiva and sclera normal. LUNGS: Respirations nonlabored HEART: Regular rate and rhythm ABD: Soft, nondistended, nontender, no rebound, no guarding : Not examined EXT: No clubbing, cyanosis or edema. SKIN: No rashes or lesions noted. NEURO: Awake, alert, and oriented x3. No focal sensory or strength deficits noted. Vital Signs (last 8hr) Date Time Temp Pulse Resp B/P (MAP) Pulse Ox O2 Delivery O2 Flow Rate FiO2 12/09/24 13:23 97.7 82 20 135/93 95 Room Air 12/09/24 08:35 97.5 77 20 142/66 96 Room Air Laboratory: [ ] Hematology Labs: Test 12/09/24 04:13 Range/Units White Blood Count 5.5 4.8-10.8 K/uL Red Blood Count 5.02 4.00-5.50 MIL/uL Hemoglobin 14.5 12.0-16.0 g/dL Hematocrit 42.3 36-48 % Mean Corpuscular Volume 84.3 79-99 fL Mean Corpuscular Hemoglobin 28.9 27.0-33.0 pg Mean Corpuscular Hemoglobin Concent 34.3 32.0-36.0 g/dL Red Cell Distribution Width 12.8 11.0-15.5 % Platelet Count 193 130-400 K/uL Mean Platelet Volume 10.8 H 7.5-10.5 fL Immature Granulocyte % (Auto) 0.4 0-1 % Neutrophils (%) (Auto) 40.5 40.0-77.0 % Lymphocytes (%) (Auto) 46.9 21.0-51.0 % Monocytes (%) (Auto) 7.3 3.0-13.0 % Eosinophils (%) (Auto) 4.4 0.0-8.0 % Basophils (%) (Auto) 0.5 0.0-5.0 % Neutrophils # (Auto) 2.2 1.8-7.7 K/uL Lymphocytes # (Auto) 2.6 1.0-4.8 K/uL Monocytes # (Auto) 0.4 0.1-1.0 K/uL Eosinophils # (Auto) 0.24 0.00-0.70 K/uL Basophils # (Auto) 0.03 0.00-0.20 K/uL Absolute Immature Granulocyte (auto 0.02 0-1 K/uL Nucleated Red Blood Cells 0.0 0.0-0.19 % Chemistry Labs: Test 12/09/24 12:00 12/09/24 06:13 12/09/24 04:13 12/08/24 12:12 Range/Units Whole Blood Glucose 187 H 70-110 MG/DL Vitamin B12 Level 421 193-986 pg/mL Sodium Level 140 136-145 mmol/L Potassium Level 3.7 3.5-5.1 mmol/L Chloride Level 101 101-111 mmol/L Carbon Dioxide Level 33 H 21-32 mmol/L Blood Urea Nitrogen 9 7-18 mg/dL Creatinine 0.7 0.5-1.0 mg/dL Glomerular Filtration Rate Calc 102 >90 mL/min Random Glucose 135 H 70-105 mg/dL Uric Acid 2.9 2.6-7.2 mg/dL Total Calcium 8.9 8.5-10.1 mg/dL Phosphorus Level 3.8 2.5-4.9 mg/dL Magnesium Level 2.00 1.80-2.40 mg/dL Total Bilirubin 0.4 0.2-1.0 mg/dL Aspartate Amino Transf (AST/SGOT) 30 10-37 U/L Alanine Aminotransferase (ALT/SGPT) 59 12-78 U/L Alkaline Phosphatase 107 50-136 U/L Total Protein 6.7 6.0-8.3 g/dL Albumin 3.2 L 3.5-5.0 g/dL Thyroid Stimulating Hormone (TSH) 3.29 0.36-3.74 uIU/mL Lactic Acid Level 1.9 0.8-2.5 mmol/L Triglycerides Level 187 30-200 mg/dL Cholesterol Level 197 <200 mg/dL LDL Cholesterol 113 H 0-99 mg/dL HDL Cholesterol 48 35-85 mg/dL Test 12/08/24 08:39 12/07/24 23:13 Range/Units Hemoglobin A1c 10.9 H 4.0-6.0 % Estimated Average Glucose (eAG) 266 H 70-126 mg/dL Direct Bilirubin 0.1 0.0-0.3 mg/dL C-Reactive Protein, Quantitative 16.20 H 0.5-3.0 mg/L Procalcitonin < 0.05 L 0.05-0.5 ng/mL Troponin I High Sensitivity 5 4-50 ng/L Lipase 57 16-77 U/L Coagulation Labs: Test 12/08/24 08:39 Range/Units Prothrombin Time 10.7 9.6-11.6 SEC Prothromb Time International Ratio 1.01 0.85-1.15 Activated Partial Thromboplast Time 22.6 L 26.3-35.5 SEC Diagnostics / Radiology: No new imaging Impression and Plan: This is a 54-year-old female with resolving small bowel obstruction. Patient is okay to advance diet as tolerated. Encourage ambulation. Patient is okay for discharge once tolerating a regular diet. No follow-up necessary. Surgery will sign off. Please call with any questions or concerns. DANGELO MOHR DO Dec 09, 2024 14:55
[2024-12-09] MEDS ORDERED: ATOR40TA71 PO (15:05)
[2024-12-09] MEDS ORDERED: INSU3INS3 SQ (15:05)
[2024-12-09] MEDS ORDERED: INSU100V3 IJ (15:05)
[2024-12-09] MEDS ORDERED: SYRI1DIS SQ (15:05)
[2024-12-09] MEDS ORDERED: BLOO-140 MC (16:03)
--- NOTE | 2024-12-09 16:58 | NUR ---
DISCHARGE PT PIC DC'D PT VERBALIZED UNDERSTANDING OF DISCHARGE INSTRUCTIONS PT GATHERED AND TOOK ALL BELONGINGS PT HAD NO FURTHER QUESTIONS AT TIME OF DISCHARGE
--- NOTE | 2024-12-09 17:04 | DS ---
Discharge Summary Hospital Course Summary: Ms. Flor is a 53-year-old female with no known history who presented to [facility] for evaluation of abdominal pain onset on the evening of 12/07/2024. The patient stated the pain is in the epigastric pain radiating to the backside onset around 7:00 p.m. she also reported that she has pain to the flank that radiates to the front. The patient thought she may be constipated and took a laxative around 7:30 p.m. without significant improvement. She reported vomiting after she arrived at the hospital. She denied fever, chills, or rigors. V/S on arrival: 97.7 pulse 125 bpm, respirations 20 bpm, blood pressure 173/88 with a pulse oximetry of 100 %. Labs: WBCs 11.5. Blood glucose was 365 without known history of diabetes mellitus. UA was positive for protein, glucose, ketones, blood, but negative for leuk EST and nitrites. CT abdomen and pelvis with contrast: Mild small bowel obstruction with dilatation of the distal small bowel loops terminating at the ileal cecal junction. Moderate fecal content in the cecum. Mild ascites. Uncomplicated colonic diverticula. Fatty liver. Cortical scars in the left kidney. Uncomplicated umbilical and supraumbilical ventral wall hernias. Chest x-ray: No acute cardiopulmonary pathology is evident. In ED the patient was administered GI cocktail, morphine 2 mg IV, morphine 4 mg IV, Zofran 4 mg IV, NS 2 L bolus, Rocephin 1 g, insulin 5 units. ED provider requested patient be admitted to the hospital with the diagnosis of SBO, UTI, new onset DM on 12/08/2024. Upon admission, patient was placed on an NPO diet and general surgery was brought on board regarding possible surgery for her small-bowel obstruction. While in observation patient started passing gas and had a bowel movement. Patient's abdominal pain subsided as well. Nephrology was contacted as well due to the abnormalities on her urinalysis, they recommended following the patient for any changes in renal function. Regarding patient's diabetes mellitus, her HbA1c on admission was 10.9 and blood glucose was 365. Patient was placed on an insulin sliding scale to control her blood glucose levels. On 12/09/2024, the patient's condition was much improved and general surgery signed off on the patient and recommended conservative management for her abdominal pain. Patient's diet was escalated gradually from NPO to regular diet to see her tolerance. Patient is clinically stable for discharge today and will be discharged if she is able to tolerate regular meals with advice to follow up with her primary care physician within 3-5 days and follow up with Endocrinology on an outpatient basis within 2 weeks. Provider Scribe(s): Consultants: General Surgery: This is a 54-year-old female with resolving small bowel obstruction. Patient is okay to advance diet as tolerated. Encourage ambulation. Patient is okay for discharge once tolerating a regular diet. No follow-up necessary. Surgery will sign off. Please call with any questions or concerns. Nephrology: Labs, diagnostic, radiologic exams reviewed and interpreted by myself and supervising physician. We have reviewed external records in detail Require close monitoring of renal function and electrolytes Order CBC, CMP, and electrolytes in am Continue with antibiotics BiPAP as necessary, for respiratory distress Monitor blood pressure adjust medication doses as needed Avoid hypotensive episodes May use Dilaudid 0.5 mg IV every 6 hours as needed for severe pain Monitor blood sugars Strict intake, output, and daily weight should be monitored Please renally adjust medications Avoid nephrotoxic and nonsteroidal drugs Avoid contrast if possible Will continue to monitor renal function, anemia, electrolytes Treatment plan discussed with patient Questions were answered We have discussed with the other team physicians in detail about the care plan We will continue to monitor the patient closely Procedure(s): [facility] [address] [place] [address] IMAGING REPORT Signed PATIENT: BUDDY FLOR MR#: [id number] : 1970 SEX: F AGE: 54 LOCATION: [facility] ORDER 13 STATUS: REG ER REPORT#: [id number] SERVICE 10 REASON: Epigastric pain ORDERING PHYSICIAN: STEPHANI JAMIL MD PROCEDURE: CXR1VW - CHEST 1VW EXAM: CR Chest, 1 view. CLINICAL HISTORY: Epigastric pain. COMPARISON: None. FINDINGS: The lungs show no infiltration or other acute findings. No pleural effusion or pneumothorax. The cardio mediastinal silhouette is within normal limits. No acute osseous abnormality. IMPRESSION: No acute cardiopulmonary pathology is evident. /[place] DICTATED BY: DINORAH TADEO Jr., MD DATE: 12/08/24125 ELECTRONICALLY SIGNED BY: DINORAH TADEO Jr., MD DATE: 12/08/24125 [place] [address] [place] [address] [id number] IMAGING REPORT Addendum PATIENT: BUDDY FLOR MR#: [id number] : 1970 SEX: F AGE: 54 LOCATION: [facility] ORDER 1 STATUS: [facility] REPORT#: [id number] SERVICE REASON: severe epigastric pain, nausea ? Biliary colic ORDERING PHYSICIAN: STEPHANI JAMIL MD PROCEDURE: ABD PEL WO - CT ABDOMEN/PELVIS W/O CONTRAST ADDENDUM REPORT ADDENDUM: Results were shared by telephone at 3:49 am on 12-08-24 and acknowledged by Stephani Severino. /[place] EXAM: CT Abdomen and Pelvis without IV contrast. CLINICAL HISTORY: Severe pain in the epigastrium. TECHNIQUE: Thin collimated axial CT images of the abdomen and pelvis were obtained, with sagittal and coronal reformatted images also submitted. A CT scan is done according to ALARA (As Low As Reasonably Achievable). CONTRAST: None. COMPARISON: None. FINDINGS: Unremarkable visualized lung parenchyma. There is no focal abnormality appreciated within the liver, pancreas, spleen, or adrenals. Status post cholecystectomy. Fatty liver. Moderate thinning of the cortex in the upper pole of the left kidney. There is mild dilatation of the distal small bowel loops to a maximum diameter of 2.8 cm with dilatation terminating at the ileal cecal junction. Moderate fecal content in the cecum. The appendix is unremarkable. Small ventral supraumbilical hernia containing fat through a defect measuring 1.7 cm. 0.7 cm omental fat-containing umbilical hernia. Uncomplicated colonic diverticula. There is no abnormality within the urinary bladder. Unremarkable reproductive organs. No lymphadenopathy. Mild ascites. No pneumoperitoneum. There is about 5 mm phlebolith around the junction of the right renal vein and IVC. Mild calcific atherosclerotic disease in the abdominal aorta. There is no acute osseous abnormality. IMPRESSIONS: Mild small bowel obstruction with dilatation of the distal small bowel loops terminating at the ileal cecal junction. Moderate fecal content in the cecum. Mild ascites. Uncomplicated colonic diverticula. Fatty liver. Cortical scars in the left kidney. Uncomplicated umbilical and supraumbilical ventral wall hernias. Recommend a barium follow-through study for further evaluation. /[place] DICTATED BY: DINORAH TADEO Jr., MD DATE: 12/08/24 0356 ELECTRONICALLY SIGNED BY: DATE: EXAM: CT Abdomen and Pelvis without IV contrast. CLINICAL HISTORY: Severe pain in the epigastrium. TECHNIQUE: Thin collimated axial CT images of the abdomen and pelvis were obtained, with sagittal and coronal reformatted images also submitted. A CT scan is done according to ALARA (As Low As Reasonably Achievable). CONTRAST: None. COMPARISON: None. FINDINGS: Unremarkable visualized lung parenchyma. There is no focal abnormality appreciated within the liver, pancreas, spleen, or adrenals. Status post cholecystectomy. Fatty liver. Moderate thinning of the cortex in the upper pole of the left kidney. There is mild dilatation of the distal small bowel loops to a maximum diameter of 2.8 cm with dilatation terminating at the ileal cecal junction. Moderate fecal content in the cecum. The appendix is unremarkable. Small ventral supraumbilical hernia containing fat through a defect measuring 1.7 cm. 0.7 cm omental fat-containing umbilical hernia. Uncomplicated colonic diverticula. There is no abnormality within the urinary bladder. Unremarkable reproductive organs. No lymphadenopathy. Mild ascites. No pneumoperitoneum. There is about 5 mm phlebolith around the junction of the right renal vein and IVC. Mild calcific atherosclerotic disease in the abdominal aorta. There is no acute osseous abnormality. IMPRESSIONS: Mild small bowel obstruction with dilatation of the distal small bowel loops terminating at the ileal cecal junction. Moderate fecal content in the cecum. Mild ascites. Uncomplicated colonic diverticula. Fatty liver. Cortical scars in the left kidney. Uncomplicated umbilical and supraumbilical ventral wall hernias. Recommend a barium follow-through study for further evaluation. /[place] DICTATED BY: DINORAH TADEO Jr., MD DATE: 12/08/24335 ELECTRONICALLY SIGNED BY: DINORAH TADEO Jr., MD DATE: 12/08/24335 Assessment/Plan: ASSESSMENT: Small bowel obstruction with dilatation of the distal small bowel loops terminating at the ileal cecal junction, per CT 12/08/2024. Mild ascites, per CT on 12/08/2024 Hyperglycemia without known history of diabetes mellitus Uncomplicated colonic diverticula, per CT on 12/08/2024 Fatty liver Cortical scars in the left kidney, per CT on 12/08/2024 Uncomplicated umbilical and supraumbilical ventral wall hernias, per CT on 12/08/2024 Leukocytosis, POA Erythrocytosis, POA Hyperhemoglobinemia, POA Polycythemia, POA Hyponatremia and hyperchloremia Acute kidney injury, GFR 67 (no other GFR to compare) Proteinemia, Glucosuria, ketonuria, per UA on 12/07/2024 PLAN: Small-bowel obstruction: -CT abdomen and pelvis revealed mild small bowel obstruction with dilatation of the distal small bowel loops terminating at the ileocecal junction. - general surgery was consulted, pending evaluation. -patient switch to full liquid diet from NPO today -patient will be given morphine 2 mg for severe pain, acetaminophen 650 mg for past-[id number] pain as needed. -serum lactic acid, hepatic function panel ordered, pending results -closely monitor the patient for disease progression in the hospital. Acute kidney injury vs chronic kidney disease vs dehydration: -On admission, patient had a GFR of 67. -urine protein creatinine ratio showed proteinuria at 1 g. -nephrology was consulted, pending evaluation. -continue monitoring kidney function with serial labs. Uncontrolled hyperglycemia: -on admission patient was found to be hyperglycemic with a random glucose of 365 and a HbA1c of 10.9%. -patient was placed on an insulin sliding scale and hypokalemia protocol. -patient will be given 10 units of Lantus tonight -endocrinology consulted, pending evaluation. -continue monitoring blood glucose. GI prophylaxis with Pepcid 20 mg. DVT prophylaxis with SCDs. Discharge Instructions: Discharge to: <Home> DC DIET: <1500-1700CAL ADA> DISCHARGE ACTIVITY: <AD MARISELA> OTHER D/C INSTRUCTIONS: You were admitted with concern for a small bowel obstruction, but further evaluation did not show obstruction. During you stay, you were newly diagnosed with diabetes mellitus. You were now stable for discharge. It is important to begin taking her diabetes medication exactly as prescribed and to check your blood sugar regularly as instructed. Follow a balanced diet low in simple sugars and stay active as recommended by your doctor. Watch for warning signs such as severe abdominal pain, persistent vomiting, blood in stool, confusion, or very high or low blood sugar, and seek medical care immediately if these occur. Please follow up with your primary care provider within 3-5 days and schedule an outpatient appointment with an nocturnist physician within 2 weeks for ongoing diabetes management and long-term care. D/C MEDICATION INSTRUCTION: Refer to medication list DC FOLLOW UP: Please follow up with your primary care provider within 3-5 days and schedule an outpatient appointment with an nocturnist physician within 2 weeks for ongoing diabetes management and long-term care. Home Medications: Active Scripts Blood-Glucose Meter (Blood Glucose Meter) 1 Each Each, EACH , #1 brand per insurance formulary Prov:KEIRY LINDSEY MD 12/09/24 Atorvastatin Calcium (Atorvastatin Calcium) 40 Mg Tablet, 1 TAB PO DAILY for 30 Days, #30 TAB 0 Refills Prov:KEIRY LINDSEY MD 12/09/24 Syringe & Needle,Insulin,1 ml (Insulin Syringe) 31 Gauge X 5/16" Disp.syrin, SYR SQ DAILY, #100 0 Refills Prov:KEIRY LINDSEY MD 12/09/24 Insulin Regular, Human (Humulin R) 100 Unit/Ml Vial, 3 UNITS IJ TIDAC, #3 VIAL Prov:KEIRY LINDSEY MD 12/09/24 Insulin Glargine,Hum.rec.anlog (Lantus Solostar) 100 Unit/Ml (3 Ml) Insuln.pen, 15 UNIT SQ HS for 33 Days, #5 ML 0 Refills Prov:KEIRY LINDSEY MD 12/09/24 New Medications: Atorvastatin Calcium (Atorvastatin Calcium) 40 Mg Tablet 1 TAB PO DAILY for 30 Days, #30 TAB 0 Refills Blood-Glucose Meter (Blood Glucose Meter) 1 Each Each EACH , #1 brand per insurance formulary Insulin Glargine,Hum.rec.anlog (Lantus Solostar) 100 Unit/Ml (3 Ml) Insuln.pen 15 UNIT SQ HS for 33 Days, #5 ML 0 Refills Insulin Regular, Human (Humulin R) 100 Unit/Ml Vial 3 UNITS IJ TIDAC, #3 VIAL Syringe & Needle,Insulin,1 ml (Insulin Syringe) 31 Gauge X 5/16" Disp.syrin SYR SQ DAILY, #100 0 Refills Time spent arranging discharge: 1-30 minutes ATTESTATION BY PHYSICIAN I have seen and examined the patient. I reviewed the documentation, medical decision making, and treatment plan as noted by the resident provider above. I agree with the findings and plan of care. Jefferson Funk MD, HEMA MD Dec 09, 2024 17:04
--- NOTE | 2024-12-09 21:46 | HMCIMG ---
EXAM: CR Abdomen, 1 view. CLINICAL HISTORY: SOB COMPARISON: Prior CT abdomen and pelvis dated 08 December 2024. FINDINGS: Probable mild hepatomegaly. Surgical clips in the right upper quadrant are probably post-cholecystectomy surgical clips. Two 2 mm adjacent calculi in the pelvis on the left side, medial to the left ischial spine, with central lucency, may represent phleboliths. Nonobstructed nonspecific bowel gas pattern. No free air is evident. No abnormal calcification. No aggressive appearing osseous lesion. IMPRESSION: No acute process. Nonobstructive bowel gas pattern. Probable mild hepatomegaly. Surgical clips in the right upper quadrant are probably post-cholecystectomy surgical clips. Two 2 mm adjacent calculi in the pelvis on the left side, medial to the left ischial spine, with central lucency, may represent phleboliths. Compared to the prior CT stoker erector image, there is no significant interval change. /[place]
== END 2024-12-09 19:00 | disposition home or self-care (01) | DRG 389 ==
LOC: EDH 23:00 → EDHIP 23:01 → 3AH 12-08 23:39
PROVIDERS: ADMIT Internal Medicine; ATTEND Internal Medicine
DX: K56.609 Unspecified intestinal obstruction, unspecified as to partial versus complete obstruction (principal); E87.1 Hypo-osmolality and hyponatremia; N17.9 Acute kidney failure, unspecified; R18.8 Other ascites; N39.0 Urinary tract infection, site not specified; E87.8 Other disorders of electrolyte and fluid balance, not elsewhere classified; D75.1 Secondary polycythemia; E11.65 Type 2 diabetes mellitus with hyperglycemia; E11.9 Type 2 diabetes mellitus without complications; K57.30 Diverticulosis of large intestine without perforation or abscess without bleeding; K76.0 Fatty (change of) liver, not elsewhere classified; Z79.4 Long term (current) use of insulin; Z79.899 Other long term (current) drug therapy
CPT/HCPCS: 36415; 71045; 74018; 74176; 80048; 80051; 80053; 80061; 80076; 81001; 82306; 82570; 82607; 82948; 83036; 83605; 83690; 83735; 83935; 84100; 84145; 84156; 84443; 84484; 84550; 85025; 85610; 85730; 86140; 87086; 93005; 96372; 96374; 99285; G0378; J0696; J1815; J2270; J2405; J3490; J7030; J7120